=== PATIENT | male | born 1930 | race Caucasian/White ===

== ENCOUNTER → 2017-01-11 | Outpatient (CLI) | payer OTHER ==
[2017-01-11 15:04] LABS: MEAN CORPUSCULAR HEMOGLOBIN 32.9 pg (27.0-33.0); MEAN CORPUSCULAR HGB CONC 33.8 g/dl (32.0-36.5); MEAN CORPUSCULAR VOLUME 97.4 fl (80.0-96.0); RED CELL DISTRIBUTION WIDTH 13.2 % (11.5-14.5); WHITE BLOOD COUNT 3.9 K/mm3 (4.0-10.0)
[2017-01-11 15:17] LABS: FOLATE 6.4 NG/ML (>5.4); VITAMIN B12 LEVEL 316 PG/ML (247-911)
[2017-01-11 15:18] LABS: ALBUMIN 3.8 GM/DL (3.2-5.2); ALBUMIN/GLOBULIN RATIO 1.12 (1.00-1.93); ALKALINE PHOSPHATASE 67 U/L (45-117); ALT/SGPT 20 U/L (12-78); ANION GAP 6 MEQ/L (8-16); AST/SGOT 17 U/L (15-37); BILIRUBIN,TOTAL 0.4 MG/DL (0.2-1.0); BLOOD UREA NITROGEN 17 MG/DL (7-18); CALCIUM LEVEL 8.5 MG/DL (8.8-10.2); CARBON DIOXIDE LEVEL 30 MEQ/L (21-32); CHLORIDE LEVEL 105 MEQ/L (98-107); CREATININE FOR GFR 0.85 MG/DL (0.70-1.30); GLOMERULAR FILTRATION RATE > 60.0 (>35); GLUCOSE, FASTING 111 MG/DL (83-110); SODIUM LEVEL 141 MEQ/L (136-145); TOTAL PROTEIN 7.2 GM/DL (6.4-8.2)
== END ==
LOC: M LAB 13:48
PROVIDERS: ATTEND Family Medicine
DX: F03.90 Unspecified dementia, unspecified severity, without behavioral disturbance, psychotic disturbance, mood disturbance, and anxiety (principal)

== ENCOUNTER 2018-11-16 10:10 | Emergency (ER) | payer MEDICARE ==
[~2018-11-16] VITALS: Ht 182.9 cm; Wt 65.9 kg
--- NOTE | 2018-11-16 10:58 | REP ---
CT Head without contrast HISTORY: Fall COMPARISON: None Areas of decreased attenuation are present in the periventricular and subcortical white matter. This represents small-vessel ischemic disease. There is no intraparenchymal hemorrhage, acute infarct, mass or midline shift. The ventricular system and cortical sulci as well as subarachnoid space in the posterior fossa are dilated consistent with moderate volume loss. There is no extra cerebral collection. There is no fracture. The visualized sinuses are clear. IMPRESSION: 1. Small vessel ischemic disease. 2. Moderate volume loss. Electronically Signed by Octaviano Rascon MD 11/16/2018 10:50 A
--- NOTE | 2018-11-16 11:56 | REP ---
Right hip two views History: Fall There is no acute fracture or dislocation. The joint space is normal in appearance. Impression: There is no acute fracture or dislocation. Electronically Signed by Octaviano Rascon MD 11/16/2018 11:48 A
--- NOTE | 2018-11-16 12:16 | REP ---
RIGHT ELBOW, FOUR VIEWS: HISTORY: Fall. There is no acute fracture or dislocation. The joint space is normal in appearance. IMPRESSION: There is no acute fracture or dislocation. Electronically Signed by Octaviano Rascon MD 11/16/2018 12:18 P
--- NOTE | 2018-11-16 12:17 | REP ---
UNILATERAL RIGHT RIBS, PA CHEST, FIVE VIEWS: HISTORY: Fall. COMPARISON: 08/23/2005 A calcified granuloma is present in the right lower lobe. The left lung is clear. The heart is normal in size. The pulmonary vasculature is normal in appearance. The bony structure is intact. IMPRESSION: No acute disease. Electronically Signed by Octaviano Rascon MD 11/16/2018 12:17 P
[2018-11-16] MEDS ORDERED: ACET-683 PO (12:51)
[2018-11-16 12:54] VITALS: BP 140/69
== END 2018-11-16 12:55 | disposition home or self-care (01) ==
LOC: M ED 10:10
DX: R26.81 Unsteadiness on feet (principal); S20.211A Contusion of right front wall of thorax, initial encounter; S50.01XA Contusion of right elbow, initial encounter; S70.01XA Contusion of right hip, initial encounter; S00.03XA Contusion of scalp, initial encounter; W18.39XA Other fall on same level, initial encounter; Y92.018 Other place in single-family (private) house as the place of occurrence of the external cause; G30.9 Alzheimer's disease, unspecified; Z79.899 Other long term (current) drug therapy

== ENCOUNTER 2018-11-23 18:41 | Emergency (ER) | payer MEDICARE ==
[~2018-11-23] VITALS: Ht 177.8 cm; Wt 63.6 kg
[~2018-11-23 18:41] MED LIST: ACET-683 PO
[2018-11-23] MEDS ORDERED: RISP0.5T3 (18:46)
[2018-11-23] MEDS ORDERED: NS 1,000 ML IV ONE (19:15)
[2018-11-23 19:40] LABS: BASO % 0.5 % (0.0-1.0); EOS # 0.1 10^3/uL (0.0-0.50); EOS % 2.3 % (0.0-3.0); HEMATOCRIT 36.8 % (42.0-52.0); HEMOGLOBIN 11.8 g/dl (13.5-17.5); LYMPH # 0.8 10^3/uL (1.5-4.5); LYMPH % 12.8 % (24.0-44.0); MEAN CORPUSCULAR HEMOGLOBIN 31.4 pg (27.0-33.0); MEAN CORPUSCULAR HGB CONC 32.1 g/dl (32.0-36.5); MEAN CORPUSCULAR VOLUME 97.9 fl (80.0-96.0); MONO # 0.5 10^3/uL (0.0-0.8); MONO % 8.8 % (0.0-5.0); NEUTROPHILS # 4.6 10^3/uL (1.8-7.7); NEUTROPHILS % 75.3 % (36.0-66.0); PLATELET COUNT, AUTOMATED 276 10^3/uL (150-450); RED BLOOD COUNT 3.76 10^6/uL (4.30-6.10); WHITE BLOOD COUNT 6.2 10^3/uL (4.0-10.0)
[2018-11-23 20:25] LABS: ALBUMIN 3.1 GM/DL (3.2-5.2); ALT/SGPT 20 U/L (12-78); BILIRUBIN,DIRECT < 0.1 MG/DL (0.0-0.2); BILIRUBIN,TOTAL 0.2 MG/DL (0.2-1.0); BLOOD UREA NITROGEN 18 MG/DL (7-18); CALCIUM LEVEL 8.6 MG/DL (8.8-10.2); CARBON DIOXIDE LEVEL 31 MEQ/L (21-32); CHLORIDE LEVEL 106 MEQ/L (98-107); CREATININE FOR GFR 0.89 MG/DL (0.70-1.30); GLOMERULAR FILTRATION RATE > 60.0 (>35); GLUCOSE, FASTING 104 MG/DL (70-100); LIPASE 91 U/L (73-393); POTASSIUM SERUM 4.1 MEQ/L (3.5-5.1); SODIUM LEVEL 141 MEQ/L (136-145); TOTAL PROTEIN 6.9 GM/DL (6.4-8.2)
[2018-11-23 21:29] VITALS: BP 144/96
--- NOTE | 2018-11-24 01:12 | REP ---
Clinical: Abdominal pain. Technique: Supine and cross-table lateral views of the abdomen and pelvis. Findings: The bowel gas pattern is nonspecific and without obstruction or perforation. No organomegaly. Calcifications in the pelvis likely represent phleboliths although a distal left ureteral stone cannot be excluded and should be correlated with physical examination. Skeletal structures demonstrate chronic levoconvex scoliosis and multilevel degenerative changes. Impression: 1. Nonspecific bowel gas pattern 2. Calculus in the left yusef pelvis phlebolith versus possible distal ureteral stone. Electronically Signed by Usman Cherry MD 11/24/2018 01:01 A
== END 2018-11-23 21:31 | disposition home or self-care (01) ==
LOC: M ED 18:41
DX: R19.7 Diarrhea, unspecified (principal); R10.9 Unspecified abdominal pain

== ENCOUNTER 2019-05-10 10:16 | Emergency (ER) | payer MEDICARE ==
[~2019-05-10] VITALS: Ht 182.9 cm; Wt 63.6 kg
[~2019-05-10 10:16] MED LIST changes: +RISP0.5T3 PO
[2019-05-10] MEDS ORDERED: FLEET ENEMA PR ONE (10:45)
[2019-05-10] MEDS ORDERED: MIRA3350 PO ×2 (11:50→13:16)
[2019-05-10] MEDS ORDERED: COLA1TAB PO (11:50)
[2019-05-10] MEDS ORDERED: LIDOCAINE 2% 5ML JELLY UROJET TOP ONE (12:00)
[2019-05-10] MEDS ORDERED: BACT800T5 PO ×2 (12:45→13:16)
[2019-05-10] MEDS ORDERED: SENN1TAB36 PO (13:16)
[2019-05-10 13:33] VITALS: BP 155/88
== END 2019-05-10 13:36 | disposition home or self-care (01) ==
LOC: M ED 10:16
DX: K59.00 Constipation, unspecified (principal); R33.9 Retention of urine, unspecified; N39.0 Urinary tract infection, site not specified; N40.1 Benign prostatic hyperplasia with lower urinary tract symptoms; G30.9 Alzheimer's disease, unspecified; Z79.899 Other long term (current) drug therapy

== ENCOUNTER 2019-05-12 03:54 | Inpatient (IN) | payer MEDICARE ==
[~2019-05-12] VITALS: Ht 182.9 cm; Wt 63.6 kg
[~2019-05-12 03:54] MED LIST changes: +BACT800T5 PO; +COLA1TAB PO; +MIRA3350 PO; +SENN1TAB36 PO
[2019-05-12] MEDS ORDERED: LIDOCAINE 2% 5ML JELLY UROJET TOP ONE ×2 (04:45→06:30)
--- NOTE | 2019-05-12 06:24 | REPVR ---
PROCEDURE INFORMATION: Exam: CT Abdomen And Pelvis Without Contrast Exam date and time: 05/12/2019 5:07 AM Clinical history: 88 years old, male; Abdominal pain; Localized; Lower; Additional info: Suprapubic pain, ? bladder overdistention TECHNIQUE: Imaging protocol: Computed tomography of the abdomen and pelvis without contrast. Radiation optimization: All CT scans at this facility use at least one of these dose optimization techniques: automated exposure control; mA and/or kV adjustment per patient size (includes targeted exams where dose is matched to clinical indication); or iterative reconstruction. COMPARISON: CR Hip, Ap,Lat 11/16/2018 11:12 AM FINDINGS: Limitations: There is artifact related to the positioning of the patients arms. There is motion artifact. Lungs: There is a coarse calcification posteriorly in the right lower lobe, only partially included, most likely a calcified granuloma. Nonspecific dependent hazy density is present in the lung bases. Liver: The unenhanced liver appears unremarkable. Gallbladder and bile ducts: The gallbladder appears grossly unremarkable, but assessment is limited by artifact at this level. Pancreas: There is diffuse, benign fatty infiltration of the pancreas. Spleen: The spleen is unremarkable. Adrenals: The adrenal glands are normal. Kidneys and ureters: There is mild bilateral hydronephrosis. There is a stone in the distal left ureter just proximal to the bladder, measuring 6 x 7 x 10 mm. There is a calcification posteriorly on the right side of the bladder measuring 7 x 4 x 4 mm. This may be within the bladder lumen or in the right UVJ. There is a 6 cm cyst with simple fluid density in the right kidney lower pole. Mild diffuse thinning of the renal parenchyma is seen, indicating atrophy. Stomach and bowel: Diverticulosis is noted throughout the colon, most prominent in the sigmoid colon and left colon. There is no gross dilation or thickening of the small bowel or the colon. Assessment of the bowel is limited by motion artifact. Appendix: A normal appendix is identified. Intraperitoneal space: There is no evidence of free intraperitoneal or pelvic fluid. There is no free intraperitoneal air. Vasculature: Atherosclerotic changes are present in the abdominal aorta and the iliac arteries. Lymph nodes: No lymphadenopathy is seen. Bladder: The bladder is mildly distended, measuring 12.3 x 7.5 x 8.1 cm. There is mild diffuse thickening of the bladder wall. There is a small diverticulum at the anterosuperior aspect of the bladder in the midline. A small amount of air is seen in the bladder lumen, probably related to recent instrumentation. Please correlate clinically. There is a hyperdensity within the lumen of the bladder at the bladder base to the right of midline and in the region of the right UVJ, which is not fully evaluated without contrast, but may be blood products or a lesion projecting into the lumen. Reproductive: The prostate is enlarged, measuring 5.7 x 4.8 x 6.4 cm. Bones/joints: Degenerative endplate changes are seen at multiple levels in the visualized spine. There is facet arthropathy in the lumbar spine. There is a leftward convex curvature of the lumbar spine. Soft tissues: The soft tissues appear unremarkable. IMPRESSION: 1. Mild bilateral hydronephrosis with an obstructing 6 x 7 x 10 mm stone in the distal left ureter and a 7 x 4 x 4 mm stone on the right side of bladder posteriorly which is probably in the right UVJ, possibly in the bladder lumen. 2. Mild distention of the bladder and mild bladder wall thickening, which may be related to outflow obstruction from the enlarged prostate. 3. Small amount of hyperdensity in the lumen of the bladder at the bladder base may be blood products. Intraluminal projection of a bladder wall lesion is possible, however. Differentiation between these is limited by the lack of IV contrast. Findings were discussed with ALEXSANDRA NAGEL at 05/12/2019 6:21 AM EDT. Electronically signed by: Paula Hay On 05/12/2019 06:24:45 AM
[2019-05-12 08:03] LABS: BASO # 0.1 10^3/uL (0.0-0.2); BASO % 0.6 % (0.0-1.0); EOS # 0.2 10^3/uL (0.0-0.5); EOS % 1.7 % (0.0-3.0); HEMATOCRIT 35.6 % (42.0-52.0); HEMOGLOBIN 11.7 g/dl (13.5-17.5); LYMPH % 11.5 % (24.0-44.0); MEAN CORPUSCULAR HEMOGLOBIN 31.5 pg (27.0-33.0); MEAN CORPUSCULAR HGB CONC 32.9 g/dl (32.0-36.5); MEAN CORPUSCULAR VOLUME 95.7 fl (80.0-96.0); MONO # 1.1 10^3/uL (0.0-0.8); MONO % 12.2 % (0.0-5.0); NEUTROPHILS # 6.6 10^3/uL (1.5-8.5); NEUTROPHILS % 73.7 % (36.0-66.0); PLATELET COUNT, AUTOMATED 245 10^3/uL (150-450); RED BLOOD COUNT 3.72 10^6/uL (4.30-6.10); WHITE BLOOD COUNT 8.9 10^3/uL (4.0-10.0)
[2019-05-12 08:07] LABS: CALCIUM LEVEL 9.1 MG/DL (8.8-10.2); CREATININE FOR GFR 1.25 MG/DL (0.70-1.30); POTASSIUM SERUM 4.2 MEQ/L (3.5-5.1)
[2019-05-12] MEDS ORDERED: MELA10CA2 PO (08:07)
[2019-05-12] MEDS ORDERED: COLA100C5 PO (08:07)
[2019-05-12] MEDS ORDERED: MIRA3350 PO (08:07)
[2019-05-12] MEDS ORDERED: BACT800T5 PO (08:07)
[2019-05-12] MEDS: DOCUSATE SODIUM 100 MG CAP PO SCH ×3 (09:00→21:34)
[2019-05-12] MEDS ORDERED: MOM 30ML SUSPENSION UDC PO PRN (09:15)
[2019-05-12] MEDS ORDERED: MAALOX 30 ML SUSP *UDC PO PRN (09:15)
[2019-05-12 11:30] VITALS: BP 134/61
--- NOTE | 2019-05-12 11:31 | CR ---
DATE OF CONSULTATION: 05/12/2019 REASON FOR CONSULTATION: Urinary retention with inability to pass catheter and bilateral ureteral stones. CONSULTING PHYSICIAN: Dr. 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 He was taken to the emergency room where he had in and out catheter placement without difficulty. He returned early this morning with inability to void and severe discomfort. He has also been having some issues with constipation according to his attendant. No family is available. Attempts by ER staff to pass 16 and 18 Jordanian straight and Coude catheters were unsuccessful prompting consultation. A CT scan showed bilateral distal ureteral stones with the largest stone on the left and a smaller stone near the ureterovesical junction on the right. Bilateral hydroureteronephrosis was noted. The bladder was massively enlarged. The patient has a sensation of needing to void and continuously tries to get up. He is unable to give any other history or review of systems. There is an apparent past history of stones. He has profound dementia and is living in an assisted care environment. He takes only medications for sleep. He does take melatonin, risperidone and Colace. Remainder of his review of systems could not be obtained. PHYSICAL EXAMINATION: The patient is in moderate discomfort and complaining of an urge to void, but unable to do so. Temperature 96.8, pulse 92, respirations 18, blood pressure 162/74, saturation 98. In general, he is an elderly male who is profoundly demented. He is confused and disoriented. He is uncertain of his location. Chest is clear. Cardiac Exam: Regular rate and rhythm. Abdominal exam shows a prominent bladder. He has diffuse abdominal tenderness. Genital exam shows descended testes, without masses. Phallus uncircumcised. Rectal exam not done at this time. Remainder of physical exam unremarkable. IMPRESSION: 1. Urinary retention with bilateral ureteral stones. PROCEDURE: After obtaining informed consent from his health care proxy, we performed cystoscopy at the bedside using a 16 Jordanian flexible cystoscope. We were able to advance the scope into the bladder and pass a wire into the bladder over which we placed a 16 Jordanian [place] Tip catheter. There was a one liter return of urine which was initially clear and then turned red consistent with drainage of a distended bladder. The patient tolerated these procedures well. It is my impression that the patient may need to be admitted for metabolic optimization. Eventually, he will need endoscopic management of his stones when optimized. In the meantime, he should be watched for postoperative diuresis. I will be following the patient with the hospitalist team in house. A urine culture is ordered.
--- NOTE | 2019-05-12 13:26 | HPEPDOC ---
[facility] Medical History & Physical Date of Admission May 12, 2019 Date of Service: May 12, 2019 History and Physical Chief complaints Urinary retention HISTORY OF PRESENT ILLNESS: This is a 88-year-old male with unknown past medical history possibly of advanced dementia, Alzheimer's, BPH, was brought by the family because of abdominal pain and unable to void. The patient was found to have an extremely distended abdomen. For that reason, they tried to put a Felton in, but because it was been not been able to be placed. Urology was consulted and they inserted a Fleton. The patient also was found to have bilateral renal s tones with hydronephrosis for which urologist continues to follow the patient. The patient also was having nitrates and positive on the UA and for that reason, the patient will also be treated for UTI with Rocephin. Patient denies any abdominal pain, any chest pain, any loss of consciousness. He is been able to answer questions but is not a very good historian. Review system: 10 point review systems negative other than those described in HPI. PAST MEDICAL HISTORY: Alzheimer's, BPH PAST SURGICAL HISTORY: None ALLERGIES: NO KNOWN DRUG ALLERGIES. FAMILY HISTORY: Would not be obtained SOCIAL HISTORY: Could not be obtained HOME MEDICATIONS: Please see below. 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 Assessment and plan: 1. Urinary retention. Attempts were made in the past. 16. An 18 Burundian catheter, which were unsuccessful. Urology were able to advance the scope into the bladder and pass a wire into the bladder over which we placed a 16 Burundian [place] Tip catheter. There was a one liter return of urine which was initially clear and then turned red consistent with drainage of a distended bladder. Will monitor for any obstruction by the clot as now. The patient's urine is bloody. With that. The patient will also be kept on some fluids to avoid any pos t obstructive diuresis. Will monitor the electrolytes. 2. 2. Bilateral renal stones with hydronephrosis : Follow-up with urological consultation. Once the patient is medically optimized. Possibly the patient would require some intervention. 3. Advanced Alzheimer's. He'll be kept on fall and aspiration precautions We will get social workers in all 4 social support. DVT prophylaxis with SCDs Disposition unknown at this time Vital Signs Vital Signs Date Time Temp Pulse Resp B/P (MAP) Pulse Ox O2 Delivery O2 Flow Rate FiO2 05/12/19 11:21 98.8 75 20 111/56 (74) 96 Room Air Laboratory Data Labs 24H Laboratory Tests 2 05/12/19 07:36: Immature Granulocyte % (Auto) 0.3, Neutrophils (%) (Auto) 73.7H, Lymphocytes (%) (Auto) 11.5L, Monocytes (%) (Auto) 12.2H, Eosinophils (%) (Auto) 1.7, Basophils (%) (Auto) 0.6, Neutrophils # (Auto) 6.6, Lymphocytes # (Auto) 1.0L, Monocytes # (Auto) 1.1H, Eosinophils # (Auto) 0.2, Basophils # (Auto) 0.1, Nucleated Red Blood Cells % (auto) 0.0, Anion Gap 5L, Glomerular Filtration Rate 58.0, Calcium Level 9.1 05/12/19 08:44: Urine Color YELLOW, Urine Appearance CLEAR, Urine pH 6.0, Urine Specific [place] 1.009, Urine Protein 1+H, Urine Glucose (UA) NEGATIVE, Urine Ketones NEGATIVE, Urine Blood 3+H, Urine Nitrite POSITIVEH, Urine Bilirubin NEGATIVE, Urine Urobilinogen 0.2, Urine Leukocyte Esterase NEGATIVE, Urine WBC (Auto) 57H, Urine RBC (Auto) TNTCH, Urine Hyaline Casts (Auto) 0, Urine Bacteria (Auto) NEGATIVE, Urine Squamous Epithelial Cells 0, Urine Sperm (Auto) CBC/BMP Laboratory Tests 05/12/19 07:36 Microbiology Microbiology 05/12/19 Urine Culture, Received Pending Home Medications Scheduled Docusate Sodium (Colace) 100 Mg Capsule, 100 MG PO QHS Melatonin (Melatonin) 10 Mg Capsule, 20 MG PO QHS Risperidone (Risperidone) 0.5 Mg Tablet, 0.5 MG PO QHS Sulfamethoxazole/Trimethoprim (Bactrim Ds Tablet) 1 Each Tablet, 1 TAB PO BID FILLED 05/10/19 FOR 7 DAYS Scheduled PRN Polyethylene Glycol 3350 (Miralax) 119 Gm Powder, 17 GM PO DAILY PRN for CONSTIPATION Allergies Coded Allergies: No Known Allergies (Unverified , 11/16/18) A-FIB/CHADSVASC A-FIB History Current/History of A-Fib/PAF?: No Current PO Anticoag Therapy: No DREA GUARDADO MD May 12, 2019 13:26
[2019-05-12 14:00] VITALS: BP 122/66
[2019-05-12] MEDS: cefTRIAXone SOD 1 GM in D5W MINI-BAG PLUS 50 ML IV SCH (14:18)
[2019-05-12] MEDS: NS 1,000 ML IV SCH (14:18)
[2019-05-12] MEDS: HEPARIN SOD (PORCINE) 5000 UNITS/ML VIAL SC SCH ×2 (14:19→21:34)
[2019-05-12] MEDS: ACETAMINOPHEN TAB 650MG DOSE (2X325MG) PO PRN (16:43)
[2019-05-12] MEDS: risperiDONE 0.5 MG TAB PO SCH (21:34)
[2019-05-12 22:00] VITALS: BP 120/83
[2019-05-13] MEDS: NS 1,000 ML IV SCH ×2 (02:45→14:57)
[2019-05-13] MEDS: HEPARIN SOD (PORCINE) 5000 UNITS/ML VIAL SC SCH ×3 (05:22→21:54)
[2019-05-13 06:00] VITALS: BP 98/58
[2019-05-13 06:42] LABS: ALBUMIN 2.8 GM/DL (3.2-5.2); ALT/SGPT 12 U/L (12-78); BILIRUBIN,TOTAL 0.4 MG/DL (0.2-1.0); BLOOD UREA NITROGEN 13 MG/DL (7-18); CALCIUM LEVEL 8.4 MG/DL (8.8-10.2); CARBON DIOXIDE LEVEL 28 MEQ/L (21-32); CHLORIDE LEVEL 109 MEQ/L (98-107); CREATININE FOR GFR 1.03 MG/DL (0.70-1.30); GLOMERULAR FILTRATION RATE > 60.0 (>35); GLUCOSE, FASTING 94 MG/DL (70-100); MAGNESIUM LEVEL 2.2 MG/DL (1.8-2.4); POTASSIUM SERUM 4.2 MEQ/L (3.5-5.1); SODIUM LEVEL 142 MEQ/L (136-145); TOTAL PROTEIN 6.3 GM/DL (6.4-8.2)
--- NOTE | 2019-05-13 07:51 | IPNPDOC ---
Subjective Review oF Systems Chief Complaint The patient is a 88-year-old male admitted with a reason for visit of Ureterolithiasis,Urinary Retention,Uti. Events since Last Encounter Patient's sleeping soundly. General: Reports: ROS Unobtainable Objective Physical Examination Other physical findings Patient sleeping soundly. According to his nurses, he was up all night pulling on IVs and catheter. Urine clear. Patient with urine culture pending. Afebrile since admission. Other vital signs stable since admission. Patient appears relatively intact from a metabolic standpoint. Vital Signs/I&O Vital Signs Date Time Temp Pulse Resp B/P (MAP) Pulse Ox O2 Delivery O2 Flow Rate FiO2 05/13/19 06:00 98.4 74 18 98/58 (71) 96 Room Air I&O- Last 24 Hours up to 6 AM 05/13/19 05:59 Intake Total 1160 ml Output Total 1650 ml Balance -490 ml Laboratory Data Labs 24H Laboratory Tests 2 05/12/19 08:44: Urine Color YELLOW, Urine Appearance CLEAR, Urine pH 6.0, Urine Specific [place] 1.009, Urine Protein 1+H, Urine Glucose (UA) NEGATIVE, Urine Ketones NEGATIVE, Urine Blood 3+H, Urine Nitrite POSITIVEH, Urine Bilirubin NEGATIVE, Urine Urobilinogen 0.2, Urine Leukocyte Esterase NEGATIVE, Urine WBC (Auto) 57H, Urine RBC (Auto) TNTCH, Urine Hyaline Casts (Auto) 0, Urine Bacteria (Auto) NEGATIVE, Urine Squamous Epithelial Cells 0, Urine Sperm (Auto) 05/13/19 05:47: Anion Gap 5L, Glomerular Filtration Rate > 60.0, Calcium Level 8.4L, Magnesium Level 2.2, Total Bilirubin 0.4, Aspartate Amino Transf (AST/SGOT) 17, Alanine Aminotransferase (ALT/SGPT) 12, Alkaline Phosphatase 56, Total Protein 6.3L, Albumin 2.8L, Albumin/Globulin Ratio 0.80L CBC/BMP Laboratory Tests 05/13/19 05:47 Microbiology Microbiology 05/12/19 Urine Culture, Received Pending Assessment/Plan Date Seen The patient was seen on 05/13/19. Patient Summary Impression: Urinary retention. Difficult catheterization requiring cystoscopy. Bilateral ureteral stones with larger volume stone on left and bilateral hydronephrosis. Severe dementia. Possible UTI. Plan/VTE VTE Prophylaxis Ordered?: Yes Plan Plan: Continue broad-spectrum antibiotics pending culture results. Medical clearance for general anesthesia. Possible stone extraction versus stenting when medically optimized and infection controlled. More immediate intervention if the patient deteriorates clinically. FREDY SEGOVIA MD May 13, 2019 07:51
--- NOTE | 2019-05-13 12:14 | IPNPDOC ---
Text Note Date of Service The patient was seen on 05/13/19. NOTE Patient seen and examined this morning. 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 Assessment and plan: 1. Urinary retention. Attempts were made in the past. 16. 18 Kazakh catheter, which were unsuccessful. Urology were able to advance the scope into the bladder and pass a wire into the bladder over which we placed a 16 [place] Tip catheter. There was a one liter return of urine which was initially clear and then turned red consistent with drainage of a distended bladder. Note, the urine has been clean again The patient will also be kept on some fluids to avoid any post obstructive di uresis. Will monitor the electrolytes. 2. 2. Bilateral renal stones with hydronephrosis : Follow-up with urological consultation. Once the patient is medically optimized. Possibly the patient would require some intervention. As per medical clearance. The patient's baseline is not known. As there is some indication that he will undergo general anesthesia. We will get a baseline cardi ac function with an EKG and 2-D echo. If no severe wall at heart disease or no severe congestive heart failure. The patient will be optimized with mild to moderate risk for this low-risk surgery. We will update after 2-D echo and EKG 3. Advanced Alzheimer's. He'll be kept on fall and aspiration precautions social workers in all 4 social support. DVT prophylaxis with SCDs Disposition unknown at this time VS,Fishbone, I+O VS, Fishbone, I+O Laboratory Tests 05/13/19 05:47 Vital Signs Date Time Temp Pulse Resp B/P (MAP) Pulse Ox O2 Delivery O2 Flow Rate FiO2 05/13/19 06:00 98.4 74 18 98/58 (71) 96 Room Air I&O- Last 24 Hours up to 6 AM 05/13/19 06:00 Intake Total 1670 ml Output Total 1900 ml Balance -230 ml DREA GUARDADO MD May 13, 2019 12:14
[2019-05-13 14:00] VITALS: BP 98/57
[2019-05-13] MEDS: cefTRIAXone SOD 1 GM in D5W MINI-BAG PLUS 50 ML IV SCH (14:57)
--- NOTE | 2019-05-13 16:33 | ECGEPIP ---
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 Clincal correlation advised Electronically Signed on 05-13-2019 16:32:59 EDT by Hernandez Gong
[2019-05-13] MEDS: DOCUSATE SODIUM 100 MG CAP PO SCH (21:54)
[2019-05-13] MEDS: risperiDONE 0.5 MG TAB PO SCH (21:54)
[2019-05-13 22:00] VITALS: BP 119/77
[2019-05-14] MEDS: NS 1,000 ML IV SCH ×2 (02:11→18:12)
[2019-05-14] MEDS: HEPARIN SOD (PORCINE) 5000 UNITS/ML VIAL SC SCH ×3 (05:56→22:57)
[2019-05-14 06:00] VITALS: BP 116/74
[2019-05-14 06:33] LABS: HEMATOCRIT 32.9 % (42.0-52.0); HEMOGLOBIN 10.6 g/dl (13.5-17.5); MEAN CORPUSCULAR HEMOGLOBIN 30.7 pg (27.0-33.0); MEAN CORPUSCULAR HGB CONC 32.2 g/dl (32.0-36.5); MEAN CORPUSCULAR VOLUME 95.4 fl (80.0-96.0); PLATELET COUNT, AUTOMATED 208 10^3/uL (150-450); RED BLOOD COUNT 3.45 10^6/uL (4.30-6.10); WHITE BLOOD COUNT 5.4 10^3/uL (4.0-10.0)
[2019-05-14 07:04] LABS: BLOOD UREA NITROGEN 14 MG/DL (7-18); CALCIUM LEVEL 7.9 MG/DL (8.8-10.2); CARBON DIOXIDE LEVEL 27 MEQ/L (21-32); CHLORIDE LEVEL 109 MEQ/L (98-107); CREATININE FOR GFR 0.92 MG/DL (0.70-1.30); GLOMERULAR FILTRATION RATE > 60.0 (>35); GLUCOSE, FASTING 88 MG/DL (70-100); SODIUM LEVEL 142 MEQ/L (136-145)
--- NOTE | 2019-05-14 07:23 | IPNPDOC ---
Subjective Review oF Systems Chief Complaint The patient is a 88-year-old male admitted with a reason for visit of Ureterolithiasis,Urinary Retention,Uti. Events since Last Encounter No problems overnight. Pt non-verbal, but awake this am General: Reports: ROS Unobtainable Objective Physical Examination General Exam: Alert, No Acute Distress ENT EXAM: Atraumatic Chest Exam: Normal air movement Heart Exam: Positive: Rate Normal Vital Signs/I&O Vital Signs Date Time Temp Pulse Resp B/P (MAP) Pulse Ox O2 Delivery O2 Flow Rate FiO2 05/14/19 06:00 97.0 69 18 116/74 (88) 95 05/13/19 14:00 Room Air I&O- Last 24 Hours up to 6 AM 05/14/19 05:59 Intake Total 1625 ml Output Total 1250 ml Balance 375 ml Laboratory Data Labs 24H Laboratory Tests 2 05/14/19 06:16: Nucleated Red Blood Cells % (auto) 0.0, Anion Gap 6L, Glomerular Filtration Rate > 60.0, Calcium Level 7.9L CBC/BMP Laboratory Tests 05/14/19 06:16 Microbiology Microbiology 05/13/19 Blood Culture, Received Pending 05/12/19 Urine Culture - Final, Complete Assessment/Plan Date Seen The patient was seen on 05/14/19. Patient Summary C&S NG; No significant post-obstructive diuresis. A: Retention, difficult cath pt; B distal ureteral stones; Dementia Plan/VTE VTE Prophylaxis Ordered?: Yes Plan P: Intervention for stones - ideally B USEs - when medically optimized. I will d/w Dr. Santamaria as this is my last day here [facility]. He will assume care. FREDY SEGOVIA MD May 14, 2019 07:23
--- NOTE | 2019-05-14 12:26 | IPNPDOC ---
Text Note Date of Service The patient was seen on 05/14/19. NOTE Patient seen and examined this morning. 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 Assessment and plan: 1. Urinary retention. Attempts were made in the past. 16. 18 Swedish catheter, which were unsuccessful. Urology were able to advance the scope into the bladder and pass a wire into the bladder over which we placed a 16 Swedish [place] Tip catheter. There was a one liter return of urine which was initially clear and then turned red consistent with drainage of a distended bladder. Note, the urine has been clean again The patient will also be kept on some fluids to avoid any post obstructive di uresis. Will monitor the electrolytes. 2. 2. Bilateral renal stones with hydronephrosis : Follow-up with urological consultation. Once the patient is medically optimized. Possibly the patient would require some intervention. As per medical clearance. The patient's baseline is not known. As there is some indication that he will undergo general anesthesia. We will get a baseline cardi ac function with an EKG was done and 2-D echo still evaluated. If no severe wall at heart disease or no severe congestive heart failure. The patient will be optimized with mild to moderate risk for this low-risk surgery. We will update after 2-D echo and EKG 3. Advanced Alzheimer's. He'll be kept on fall and aspiration precautions social workers in all 4 social support. DVT prophylaxis with SCDs Disposition unknown at this time VS,Fishbone, I+O VS, Fishbone, I+O Laboratory Tests 05/14/19 06:16 Vital Signs Date Time Temp Pulse Resp B/P (MAP) Pulse Ox O2 Delivery O2 Flow Rate FiO2 05/14/19 06:00 97.0 69 18 116/74 (88) 95 05/13/19 14:00 Room Air I&O- Last 24 Hours up to 6 AM 05/14/19 06:00 Intake Total 1625 ml Output Total 1300 ml Balance 325 ml DREA GUARDADO MD May 14, 2019 12:26
[2019-05-14 14:00] VITALS: BP 126/75
[2019-05-14] MEDS: cefTRIAXone SOD 1 GM in D5W MINI-BAG PLUS 50 ML IV SCH (14:15)
--- NOTE | 2019-05-14 21:40 | ECHO ---
DATE OF PROCEDURE: 05/13/2019 DATE OF : 1930 AGE: 88 GENDER: Male HEIGHT: 72 inches WEIGHT: 141 pounds BODY SURFACE AREA: 1.84 meters squared INPATIENT: [address] [place] [address], room 4225 REFERRING PHYSICIAN: Dr. Nic Starks INDICATION: Murmur (aortic stenosis, questionable). MEASUREMENTS: 2D Measurements: RV: 3.5 cm LV: 3.8 cm Septum: 1.1 cm Posterior wall: 1.0 cm Aortic root: 2.9 cm LA: 3.4 cm LVEF: 75% DOPPLER MEASUREMENTS: AV: 1.5 meters per second LVOT: 1.3 meters per second LVOT diameter: 1.9 cm MV-E: 90, A: 110, EA ratio: 0.8 Early mitral deceleration time: 176 milliseconds E-prime medial: 6, A prime medial: 8.7, E prime lateral: 8.3, average E/E prime ratio 12.6. Pulmonary capillary wedge pressure: 17.5 mmHg PV: 0.8 meters per second Pulmonary artery acceleration time: 134 milliseconds RVSP: 24 mmHg IVC: 1.7 cm COMMENTS: Normal sinus rhythm without intraventricular conduction disturbance. M-mode and two-dimensional echocardiography was performed with pulsed, continuous wave, color flow and tissue Doppler studies. Normal left ventricular size, wall thickness and hyperkinetic wall motion. Normal left atrial size with Doppler assessment of left ventricular (LV) inflow tract showing grade 1 LV diastolic dysfunction with current estimated mean left atrial pressure upper limits of normal to mildly increased. Normal right heart chamber sizes and motion and estimated pulmonary arterial pressure. Normal inferior vena cava (IVC) size and collapse against an elevated central venous pressure. Aortic valvular sclerosis without functional abnormality. Normal aortic root size. Mildly thickened mitral annulus with adequate leaflet excursion and no posterior systolic buckling but mild mitral insufficiency. Normal appearing tricuspid valve with only trace insufficiency. No apparent intracardiac mass or pericardial effusion.
[2019-05-14 22:00] VITALS: BP 143/70
[2019-05-14] MEDS: risperiDONE 0.5 MG TAB PO SCH (22:57)
[2019-05-14] MEDS: DOCUSATE SOD LIQ 100MG/10ML UDC PO SCH (22:57)
[2019-05-15] MEDS: NS 1,000 ML IV SCH (03:45)
[2019-05-15] MEDS: HEPARIN SOD (PORCINE) 5000 UNITS/ML VIAL SC SCH ×3 (05:50→21:01)
[2019-05-15 06:00] VITALS: BP 147/72
[2019-05-15 06:20] LABS: HEMATOCRIT 34.6 % (42.0-52.0); HEMOGLOBIN 11.3 g/dl (13.5-17.5); MEAN CORPUSCULAR HEMOGLOBIN 31.2 pg (27.0-33.0); MEAN CORPUSCULAR HGB CONC 32.7 g/dl (32.0-36.5); MEAN CORPUSCULAR VOLUME 95.6 fl (80.0-96.0); PLATELET COUNT, AUTOMATED 228 10^3/uL (150-450); RED BLOOD COUNT 3.62 10^6/uL (4.30-6.10); WHITE BLOOD COUNT 7.2 10^3/uL (4.0-10.0)
[2019-05-15 06:47] LABS: ALBUMIN 2.7 GM/DL (3.2-5.2); ALT/SGPT 12 U/L (12-78); BILIRUBIN,TOTAL 0.4 MG/DL (0.2-1.0); BLOOD UREA NITROGEN 12 MG/DL (7-18); CALCIUM LEVEL 8.3 MG/DL (8.8-10.2); CARBON DIOXIDE LEVEL 28 MEQ/L (21-32); CHLORIDE LEVEL 109 MEQ/L (98-107); GLOMERULAR FILTRATION RATE > 60.0 (>35); GLUCOSE, FASTING 109 MG/DL (70-100); POTASSIUM SERUM 3.6 MEQ/L (3.5-5.1); SODIUM LEVEL 143 MEQ/L (136-145); TOTAL PROTEIN 6.7 GM/DL (6.4-8.2)
--- NOTE | 2019-05-15 10:26 | IPNPDOC ---
Text Note Date of Service The patient was seen on 05/15/19. NOTE Patient seen and examined this morning. 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 Assessment and plan: This elderly patient with no significant past medical history except for BPH, came to the hospital because of urinary retention and urology. Past. The 16 [place] catheter over a wire guidance. The patient also has been found to have bilateral hydronephrosis with nephrolithiasis for which urology wanted medical optimization and clearance, which we have provided. The patient will require a procedures 100 and urology is following with that. Continue to follow up with urology and social workers and case management's are also on board for possible placement. 1. Urinary retention. Attempts were made in the past. 16. 18 [place]an catheter, which were unsuccessful. Urology were able to advance the scope into the bladder and pass a wire into the bladder over which we placed a 16 [place]an [place] Tip catheter. There was a one liter return of urine which was initially clear and then turned red consistent with drainage of a distended bladder. Note, the urine has been clean again 2. Bilateral renal stones with hydronephrosis : Follow-up with urological consultation. Possibly the patient would require some intervention. As per medical clearance. As there is some indication that he will undergo general anesthesia. His baseline cardiac function with an EKG was done which did not show any acute pathology and 2-D echo. Also shows normal systolic function with no hypergranulosis or any valvular disease. The patient is optimized with mild to moderate risk for this low-risk surgery. 3. Advanced Alzheimer's. He'll be kept on fall and aspiration precautions social workers in all 4 social support. DVT prophylaxis with SCDs Disposition unknown at this time VS,Chente, I+O VS, Fishbone, I+O Laboratory Tests 05/15/19 05:57 Vital Signs Date Time Temp Pulse Resp B/P (MAP) Pulse Ox O2 Delivery O2 Flow Rate FiO2 05/15/19 06:00 97.8 71 20 147/72 (97) 96 05/14/19 14:00 Room Air I&O- Last 24 Hours up to 6 AM 05/15/19 06:00 Intake Total 1835 ml Output Total 1150 ml Balance 685 ml DREA GUARDADO MD May 15, 2019 10:26
[2019-05-15 14:00] VITALS: BP 124/70
[2019-05-15] MEDS: cefTRIAXone SOD 1 GM in D5W MINI-BAG PLUS 50 ML IV SCH (14:30)
[2019-05-15] MEDS: risperiDONE 0.5 MG TAB PO SCH (21:00)
[2019-05-15] MEDS: DOCUSATE SOD LIQ 100MG/10ML UDC PO SCH (21:01)
[2019-05-15 22:00] VITALS: BP 125/69
[2019-05-16] MEDS: HEPARIN SOD (PORCINE) 5000 UNITS/ML VIAL SC SCH ×3 (05:56→22:28)
[2019-05-16 06:00] VITALS: BP 123/66
[2019-05-16 06:52] LABS: HEMATOCRIT 35.2 % (42.0-52.0); HEMOGLOBIN 11.4 g/dl (13.5-17.5); MEAN CORPUSCULAR HEMOGLOBIN 30.7 pg (27.0-33.0); MEAN CORPUSCULAR HGB CONC 32.4 g/dl (32.0-36.5); MEAN CORPUSCULAR VOLUME 94.9 fl (80.0-96.0); PLATELET COUNT, AUTOMATED 235 10^3/uL (150-450); RED BLOOD COUNT 3.71 10^6/uL (4.30-6.10); WHITE BLOOD COUNT 5.9 10^3/uL (4.0-10.0)
[2019-05-16 07:25] LABS: ALBUMIN 2.6 GM/DL (3.2-5.2); ALT/SGPT 20 U/L (12-78); BILIRUBIN,TOTAL 0.5 MG/DL (0.2-1.0); BLOOD UREA NITROGEN 14 MG/DL (7-18); CALCIUM LEVEL 8.6 MG/DL (8.8-10.2); CARBON DIOXIDE LEVEL 29 MEQ/L (21-32); CHLORIDE LEVEL 106 MEQ/L (98-107); CREATININE FOR GFR 0.79 MG/DL (0.70-1.30); GLOMERULAR FILTRATION RATE > 60.0 (>35); GLUCOSE, FASTING 97 MG/DL (70-100); POTASSIUM SERUM 4.1 MEQ/L (3.5-5.1); SODIUM LEVEL 139 MEQ/L (136-145); TOTAL PROTEIN 6.4 GM/DL (6.4-8.2)
--- NOTE | 2019-05-16 11:31 | IPNPDOC ---
Text Note Date of Service The patient was seen on 05/16/19. NOTE Patient seen and examined this morning. 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 Assessment and plan: This elderly patient with no significant past medical history except for BPH, came to the hospital because of urinary retention and urology. Past. The 16 Chinese catheter over a wire guidance. The patient also has been found to have bilateral hydronephrosis with nephrolithiasis for which urology wanted medical optimization and clearance, which we have provided. The patient will require a procedures and urology is following with that. Continue to follow up with urology and social workers and case management's are also on board for possible placement. 1. Urinary retention. Attempts were made. 16. 18 Chinese catheter, which were unsuccessful. Urology were able to advance the scope into the bladder and pass a wire into the bladder over which we placed a 16 Chinese [place] Tip catheter. There was a one liter return of urine which was initially clear and then turned red consistent with drainage of a distended bladder. Note, the urine has been clean again 2. Bilateral renal stones with hydronephrosis : Follow-up with urological consultation. Possibly the patient would require some intervention. As per medical clearance. As there is some indication that he will undergo general anesthesia. His baseline cardiac function with an EKG was done which did not show any acute pathology and 2-D echo. Also shows normal systolic function with no hypergranulosis or any valvular disease. The patient is optimized with mild to moderate risk for this low-risk surgery. 3. Advanced Alzheimer's. He'll be kept on fall and aspiration precautions social workers in all 4 social support. DVT prophylaxis with SCDs Disposition unknown at this time VS,Chente, I+O VS, Chente, I+O Laboratory Tests 05/16/19 06:08 Vital Signs Date Time Temp Pulse Resp B/P (MAP) Pulse Ox O2 Delivery O2 Flow Rate FiO2 05/16/19 06:00 98.7 70 16 123/66 (85) 98 Room Air I&O- Last 24 Hours up to 6 AM 05/16/19 06:00 Intake Total 1010 ml Output Total 1125 ml Balance -115 ml DREA GUARDADO MD May 16, 2019 11:31
[2019-05-16] MEDS: cefTRIAXone SOD 1 GM in D5W MINI-BAG PLUS 50 ML IV SCH (13:16)
[2019-05-16 14:00] VITALS: BP 108/68
[2019-05-16 22:00] VITALS: BP 136/80
[2019-05-16] MEDS: DOCUSATE SOD LIQ 100MG/10ML UDC PO SCH (22:29)
[2019-05-16] MEDS: risperiDONE 0.5 MG TAB PO SCH (22:29)
[2019-05-17] MEDS: HEPARIN SOD (PORCINE) 5000 UNITS/ML VIAL SC SCH ×2 (05:47→14:09)
[2019-05-17 06:00] VITALS: BP 128/81
[2019-05-17 06:20] LABS: MEAN CORPUSCULAR HEMOGLOBIN 31.1 pg (27.0-33.0); MEAN CORPUSCULAR HGB CONC 32.4 g/dl (32.0-36.5); MEAN CORPUSCULAR VOLUME 95.9 fl (80.0-96.0); PLATELET COUNT, AUTOMATED 254 10^3/uL (150-450); RED BLOOD COUNT 3.86 10^6/uL (4.30-6.10); WHITE BLOOD COUNT 6.1 10^3/uL (4.0-10.0)
[2019-05-17 06:45] LABS: ALBUMIN 2.9 GM/DL (3.2-5.2); ALT/SGPT 24 U/L (12-78); BILIRUBIN,TOTAL 0.3 MG/DL (0.2-1.0); BLOOD UREA NITROGEN 14 MG/DL (7-18); CARBON DIOXIDE LEVEL 30 MEQ/L (21-32); CHLORIDE LEVEL 105 MEQ/L (98-107); CREATININE FOR GFR 0.76 MG/DL (0.70-1.30); GLOMERULAR FILTRATION RATE > 60.0 (>35); GLUCOSE, FASTING 102 MG/DL (70-100); POTASSIUM SERUM 3.8 MEQ/L (3.5-5.1); SODIUM LEVEL 139 MEQ/L (136-145); TOTAL PROTEIN 7.2 GM/DL (6.4-8.2)
--- NOTE | 2019-05-17 12:39 | IPNPDOC ---
Text Note Date of Service The patient was seen on 05/17/19. NOTE SUBJECTIVE: Mr. Jeter is oriented principally to self. He is requesting that his safety mittens be taken off. Patient is admitted with underlying ureterolithiasis and urinary retention. OBJECTIVE: Please see vital signs below Physical exam: HENT: Neck is supple with no adenopathy or thyromegaly. He does not have scleral icterus. Oral mucosa is moist Cardiovascular: Regular rate and rhythm. No appreciable murmur Respiratory: Clear to auscultation, no cough. Abdomen: Soft, nondistended, nontender, Felton catheter in place. Extremities: Patient has safety minutes in place to his upper extremities and his IV lines are wrapped. Neuro: Patient does not exhibit focal neuromotor deficit, but has cognition deficits ASSESSMENT/PLAN: 1. Urinary retention. Patient had placement of Felton catheter by urology services. Patient has significant prostate enlargement. 2. Urinary tract infection. The patient did have a positive UA, but a negative culture. Patient is on ceftri axone. 3. Renal stones. The patient has left ureterolithiasis and a stone to the bladder as well. Plans are in progress for intervention from the urology service. 4. Risk assessment. The patient does not have an abnormal EKG and echocardiogram is unremarkable with normal systolic function. He does not have significant underlying pulmonary disease. He is of mild to moderate risk for procedures. VS,Fishbone, I+O VS, Fishbone, I+O Laboratory Tests 05/17/19 05:40 Vital Signs Date Time Temp Pulse Resp B/P (MAP) Pulse Ox O2 Delivery O2 Flow Rate FiO2 05/17/19 06:00 98.2 78 17 128/81 (97) 96 Room Air I&O- Last 24 Hours up to 6 AM 05/17/19 06:00 Intake Total 510 ml Output Total 1675 ml Balance -1165 ml JAQUI SMYTH MD May 17, 2019 12:38
[2019-05-17 14:00] VITALS: BP 130/85
[2019-05-17] MEDS: cefTRIAXone SOD 1 GM in D5W MINI-BAG PLUS 50 ML IV SCH (14:06)
--- NOTE | 2019-05-17 17:30 | IPNPDOC ---
Text Note Date of Service The patient was seen on 05/17/19. NOTE Mr Jeter who is a 88 yo demented male was admitted 05/12/19 for urinary r etention and Dr. James put in a Felton catheter by cystoscopy at the bedside. A CT scan also showed a distal right ureteral stone measuring up to 10 mm and of questionable left stone but it looks like this may be in the bladder. There was mild bilateral hydronephrosis. He has been afebrile with normal renal function and the healthcare proxy wanted the stones were removed. The patient had a cardiac workup and has a moderate risk medical standpoint. Plan is to bring him to the operating room tomorrow for cystoscopy, bilateral ureteroscopy and less we see the stone in the bladder that we will only plan on doing the right hand side with laser lithotripsy, possible stone basketing, and stent placement. Informed consent was obtained with Ernesto Khan who is the patient's healthcare proxy. We did discuss the option of just continued watchful waiting but I think they were concerned about the risk of recurrent infection and felt that they wanted to have this taken care of. They understand that there is moderate risks to this procedure. Physical exam: He is not a alert and oriented at all and has a sitter. He did not seem to react to flank tenderness or to an abdominal exam. He had no calf tenderness or edema. Impression/Plan -Urinary retention status post Felton catheter placed by cystoscopy after unable to place Felton catheter in the emergency room 05/12/19. We'll continue Felton ca theter for now and replaced tomorrow in the operating room. -Bilateral mild hydronephrosis with a 10 mm distal left ureteral stone and a possible 7 mm right distal stone versus a bladder stone with a 6 mm simple cyst seen on CT scan 05/12/19 and we will plan surgical management tomorrow -Urine culture was normal although a UA originally showed 57 white blood cells and too numerous to count red blood cells but he has been covered with antibiotics anyway -Abnormal EKG but an echocardiogram was unremarkable with normal systolic function and it was felt that he was at moderate risk for the procedure but the healthcare proxy wanted to proceed. VS,Fishbone, I+O VS, Fishbone, I+O Laboratory Tests 05/17/19 05:40 Vital Signs Date Time Temp Pulse Resp B/P (MAP) Pulse Ox O2 Delivery O2 Flow Rate FiO2 05/17/19 14:00 98.0 96 18 130/85 (100) 100 Room Air I&O- Last 24 Hours up to 6 AM 05/17/19 06:00 Intake Total 510 ml Output Total 1675 ml Balance -1165 ml SANDRA SLAUGHTER MD May 17, 2019 17:26
[2019-05-17] MEDS: risperiDONE 0.5 MG TAB PO SCH (21:55)
[2019-05-17] MEDS: DOCUSATE SOD LIQ 100MG/10ML UDC PO SCH (21:55)
[2019-05-17 22:00] VITALS: BP 129/78
[2019-05-18] VITALS (8 sets, daily range): BP systolic 102–149; BP diastolic 68–89
[2019-05-18 06:18] LABS: HEMATOCRIT 35.3 % (42.0-52.0); HEMOGLOBIN 11.6 g/dl (13.5-17.5); MEAN CORPUSCULAR HEMOGLOBIN 30.8 pg (27.0-33.0); MEAN CORPUSCULAR HGB CONC 32.9 g/dl (32.0-36.5); MEAN CORPUSCULAR VOLUME 93.6 fl (80.0-96.0); PLATELET COUNT, AUTOMATED 283 10^3/uL (150-450); RED BLOOD COUNT 3.77 10^6/uL (4.30-6.10); WHITE BLOOD COUNT 5.8 10^3/uL (4.0-10.0)
[2019-05-18 06:40] LABS: ALBUMIN 2.8 GM/DL (3.2-5.2); ALT/SGPT 27 U/L (12-78); BILIRUBIN,TOTAL 0.3 MG/DL (0.2-1.0); BLOOD UREA NITROGEN 17 MG/DL (7-18); CALCIUM LEVEL 8.5 MG/DL (8.8-10.2); CARBON DIOXIDE LEVEL 29 MEQ/L (21-32); CHLORIDE LEVEL 103 MEQ/L (98-107); CREATININE FOR GFR 0.86 MG/DL (0.70-1.30); GLOMERULAR FILTRATION RATE > 60.0 (>35); GLUCOSE, FASTING 104 MG/DL (70-100); POTASSIUM SERUM 4.2 MEQ/L (3.5-5.1); SODIUM LEVEL 137 MEQ/L (136-145); TOTAL PROTEIN 6.8 GM/DL (6.4-8.2)
[2019-05-18] MEDS ORDERED: CONRAY-60 60% 50ML VIAL (Q9961) As Ordered ONE ×2 (11:16→14:05)
[2019-05-18] MEDS ORDERED: dexameTHASONE 4 MG/ML 1ML VIAL (J1100) As Ordered ONE (13:28)
[2019-05-18] MEDS ORDERED: LIDOCAINE 2% INJ 100 MG/5 ML SDV (FOR ANES.) As Ordered ONE (13:28)
[2019-05-18] MEDS ORDERED: fentaNYL 100 MCG/2 ML INJECTION (J3010) As Ordered ONE ×2 (13:28→14:48)
[2019-05-18] MEDS ORDERED: PROPOFOL 200 MG/20 ML VIAL As Ordered ONE (13:28)
[2019-05-18] MEDS ORDERED: ONDANSETRON 4MG/2ML VIAL (J2405) As Ordered ONE (13:28)
[2019-05-18] MEDS ORDERED: ePHEDrine SULFATE 25 MG/5 ML(5MG/ML) SYRINGE As Ordered ONE (14:25)
[2019-05-18] MEDS ORDERED: ceFAZolin 1GM INJ (J0690 PER 500MG) As Ordered ONE (14:29)
[2019-05-18] MEDS ORDERED: PHENYLephrine HCL 500 MCG/5 ML (100MCG/ML) SYRINGE (J2370) As Ordered ONE (14:35)
[2019-05-18] MEDS ORDERED: FLUORESCEIN 10% (100MG/ML) 5 ML VIAL As Ordered ONE (14:39)
[2019-05-18] MEDS ORDERED: METOCLOPRAMIDE INJ 10MG/2ML VIAL (J2765) IV PRN (16:15)
[2019-05-18] MEDS ORDERED: ONDANSETRON 4MG/2ML VIAL (J2405) IV PRN (16:15)
[2019-05-18] MEDS ORDERED: LR 1,000 ML IV SCH (16:15)
[2019-05-18] MEDS ORDERED: PERCOCET 5MG/325MG TAB PO PRN (16:15)
[2019-05-18] MEDS ORDERED: fentaNYL 100 MCG/2 ML INJECTION (J3010) IV PRN (16:15)
--- NOTE | 2019-05-18 17:07 | RO ---
DATE OF PROCEDURE: 05/18/2019 PREOPERATIVE DIAGNOSIS: 10 mm distal right ureteral calculi, possible distal left ureteral calculi versus bladder stone, and patient with urinary retention and inability to place a catheter. POSTOPERATIVE DIAGNOSIS: Significant false passage at the bladder neck with inability to find the right ureteral orifice and the stones had passed out of the left hand side. SURGEON: Dr. Eneida Ziegler PARKING INSPECTOR: ANESTHESIA: General. DRAINS: #20-Indonesian Felton catheter. FINDINGS: Significantly large false passage under the bladder neck, which probably disrupted the trigone a little bit making it very difficult to find the right ureteral orifice, also with very significant trabeculation and small diverticula formation. Also, two stones were seen in the bladder next to the right ureteral orifice. INDICATIONS FOR PROCEDURE: The patient is an 88-year-old gentleman who came to the hospital approximately 1 week ago with the inability to void. In the emergency room, they attempted to place a Felton catheter but was unable to. The urologist superintendent division, Dr. James, came in and was able to place a Felton after doing cystoscopy at the bedside. A CT scan had also been done, and this showed a 10 mm distal right ureteral calculus and a possible distal left ureteral calculus, but this appears it has already passed into the bladder. Even though the patient is completely demented, the caregiver decided that they would like to have the stone taken care of. The patient therefore was consented by the healthcare proxy to come to the operating room for more definitive management. DESCRIPTION OF PROCEDURE: The patient was brought into the operating room, general anesthesia was induced, and he was placed in the lithotomy position. Sequential compression devices were in place. Next, a 21-Indonesian cystoscope was inserted. The urethra was noted to be open without any evidence of lesions or strictures. Upon entering the prostatic urethra, a very large bladder neck false passage was seen, and he had an extremely elevated bladder neck, and I was finally able to maneuver into the bladder. Upon entering the bladder, there was extreme trabeculation throughout. I was unable to find either ureteral orifice, so I gave fluorescein. I was able to then see the right ureteral orifice and when this followed across the trigone onto the right, the anatomy was distorted, I believe because of the false passage, and I was unable to see the orifice. There were two large stones seen lateral to the right ureteral orifice, so I believe these had passed into the bladder. One was grasped with a grasping forcep, the larger one and removed. I spent some time trying to find the right ureteral orifice but decided with the bladder neck false passage that it probably was not worthwhile at this time. At this time, I placed a wire into the bladder and then placed a [place] tip catheter over this and the urine was draining well. I discussed this with the healthcare proxy. The question is whether the distal right ureteral stone needs to be taking care of. This is a very large stone and most likely it has been there for quite some time. He has not really had gross hematuria or difficulty with recurrent urinary tract infections or renal insufficiency. He is completely incapacitated because of his dementia. But this will be a familial decision. At this point, my recommendation is to leave the Felton catheter in for a minimum of 2 weeks before attempting another voiding trial and starting him most likely on Flomax and finasteride. There is a very good chance, though, that he will fail a voiding trial and may need chronic indwelling catheterization.
[2019-05-18] MEDS: cefTRIAXone SOD 1 GM in D5W MINI-BAG PLUS 50 ML IV SCH (17:42)
--- NOTE | 2019-05-18 17:43 | IPNPDOC ---
Text Note Date of Service The patient was seen on 05/18/19. NOTE SUBJECTIVE: Mr. Jeter is seen before and after his procedure today. He remains pleasantly oriented to himself, as he has significant underlying dementia. The patient is status post cystoscopy with attempted ureteroscopy. Patient has left ureterolithiasis. OBJECTIVE: Please see vital signs below Physical exam: HENT: Neck is supple with no adenopathy or thyromegaly. He does not have scleral icterus. Oral mucosa is moist, poor dentition Cardiovascular: Regular rate and rhythm. No appreciable murmur Respiratory: Clear to auscultation, no cough. Abdomen: Soft, nondistended, nontender, Felton catheter in place. Extremities: IV line sites are wrapped. Neuro: Patient does not exhibit focal neuromotor deficit, but has cognition deficits ASSESSMENT/PLAN: 1. Urinary retention. Patient has had re-placement of Felton catheter by urology services. Patient has significant prostate enlargement with a false passage. Felton catheter is to remain in place for at least 2 weeks while patient is on Flomax and finasteride. He will then be reevaluated by urology services; it may be that the Felton catheter will be a chronic indwelling Felton. 2. Urinary tract infection. The patient did have a positive UA, but a negative culture. Patient is on ceftriaxone. This can likely be stopped. 3. Renal stones. The patient underwent evaluation by cystoscopy and attempted ureteroscopy. S tones were removed from the bladder. There is residual stone to the left ureter but bladder trabeculations made the ureteral orifice difficult to see and access. This may be reattempted by urology services at a latter time and date. The patient could otherwise be discharged to home tomorrow. VS,Fishbone, I+O VS, Fishbone, I+O Laboratory Tests 05/18/19 05:55 Vital Signs Date Time Temp Pulse Resp B/P (MAP) Pulse Ox O2 Delivery O2 Flow Rate FiO2 05/18/19 16:20 95 16 125/69 (87) 97 Room Air 05/18/19 16:15 97.4 I&O- Last 24 Hours up to 6 AM 05/18/19 05:59 Intake Total 970 ml Output Total 1950 ml Balance -980 ml JAQUI SMYTH MD May 18, 2019 17:43
[2019-05-18] MEDS: ACETAMINOPHEN TAB 650MG DOSE (2X325MG) PO PRN (20:14)
[2019-05-18] MEDS: DOCUSATE SOD LIQ 100MG/10ML UDC PO SCH (20:14)
[2019-05-18] MEDS: risperiDONE 0.5 MG TAB PO SCH (20:14)
[2019-05-19 02:00] VITALS: BP 115/67
[2019-05-19 06:00] VITALS: BP 119/63
[2019-05-19 06:11] LABS: HEMATOCRIT 35.1 % (42.0-52.0); HEMOGLOBIN 11.4 g/dl (13.5-17.5); MEAN CORPUSCULAR HEMOGLOBIN 30.6 pg (27.0-33.0); MEAN CORPUSCULAR HGB CONC 32.5 g/dl (32.0-36.5); MEAN CORPUSCULAR VOLUME 94.1 fl (80.0-96.0); PLATELET COUNT, AUTOMATED 301 10^3/uL (150-450); RED BLOOD COUNT 3.73 10^6/uL (4.30-6.10); WHITE BLOOD COUNT 7.7 10^3/uL (4.0-10.0)
[2019-05-19 06:33] LABS: ALBUMIN 2.8 GM/DL (3.2-5.2); ALT/SGPT 25 U/L (12-78); BILIRUBIN,TOTAL 0.3 MG/DL (0.2-1.0); BLOOD UREA NITROGEN 24 MG/DL (7-18); CALCIUM LEVEL 8.9 MG/DL (8.8-10.2); CARBON DIOXIDE LEVEL 28 MEQ/L (21-32); CHLORIDE LEVEL 105 MEQ/L (98-107); CREATININE FOR GFR 0.95 MG/DL (0.70-1.30); GLOMERULAR FILTRATION RATE > 60.0 (>35); GLUCOSE, FASTING 106 MG/DL (70-100); POTASSIUM SERUM 4.4 MEQ/L (3.5-5.1); SODIUM LEVEL 138 MEQ/L (136-145); TOTAL PROTEIN 7.1 GM/DL (6.4-8.2)
[2019-05-19 10:00] VITALS: BP 109/65
[2019-05-19 14:00] VITALS: BP 131/87
[2019-05-19] MEDS: cefTRIAXone SOD 1 GM in D5W MINI-BAG PLUS 50 ML IV SCH (14:00)
[2019-05-19 18:00] VITALS: BP 134/74
[2019-05-19] MEDS: risperiDONE 0.5 MG TAB PO SCH (20:02)
[2019-05-19] MEDS: ACETAMINOPHEN TAB 650MG DOSE (2X325MG) PO PRN (20:02)
[2019-05-19] MEDS: DOCUSATE SOD LIQ 100MG/10ML UDC PO SCH (20:02)
[2019-05-19 22:00] VITALS: BP 132/78
[2019-05-20] MEDS: ACETAMINOPHEN TAB 650MG DOSE (2X325MG) PO PRN (01:37)
[2019-05-20 02:00] VITALS: BP 124/69
[2019-05-20 06:00] VITALS: BP 128/85
[2019-05-20 10:00] VITALS: BP 120/80
== END 2019-05-20 11:53 | disposition home health service (06) | DRG 690 ==
LOC: M ED 03:54 → M ED INP 09:10 → M MSPAV 11:32
PROVIDERS: ADMIT Internal Medicine; ATTEND Internal Medicine
PROC: 0T9B80Z Drainage of Bladder with Drainage Device, Via Natural or Artificial Opening Endoscopic (ICD-10-PCS; 2019-05-12)
PROC: 0TCB8ZZ Extirpation of Matter from Bladder, Via Natural or Artificial Opening Endoscopic (ICD-10-PCS; principal; 2019-05-18 13:00)
DX: N13.6 Pyonephrosis (principal); N39.0 Urinary tract infection, site not specified; N40.1 Benign prostatic hyperplasia with lower urinary tract symptoms; G30.9 Alzheimer's disease, unspecified; N36.5 Urethral false passage; N28.1 Cyst of kidney, acquired; F02.80 Dementia in other diseases classified elsewhere, unspecified severity, without behavioral disturbance, psychotic disturbance, mood disturbance, and anxiety; K59.00 Constipation, unspecified; R33.9 Retention of urine, unspecified; Z79.899 Other long term (current) drug therapy

== ENCOUNTER 2019-05-22 18:06 | Inpatient (IN) | payer MEDICARE ==
[~2019-05-22] VITALS: Ht 182.9 cm; Wt 61.1 kg
[~2019-05-22 18:06] MED LIST changes: +COLA100C5 PO; +MELA10CA2 PO
[2019-05-22 19:31] LABS: BASO % 0.2 % (0.0-1.0); EOS # 0.1 10^3/uL (0.0-0.5); EOS % 0.4 % (0.0-3.0); HEMOGLOBIN 12.6 g/dl (13.5-17.5); LYMPH # 0.6 10^3/uL (1.5-5.0); LYMPH % 4.5 % (24.0-44.0); MEAN CORPUSCULAR HEMOGLOBIN 30.7 pg (27.0-33.0); MEAN CORPUSCULAR HGB CONC 31.5 g/dl (32.0-36.5); MEAN CORPUSCULAR VOLUME 97.3 fl (80.0-96.0); MONO # 1.3 10^3/uL (0.0-0.8); MONO % 10.4 % (0.0-5.0); NEUTROPHILS # 10.6 10^3/uL (1.5-8.5); NEUTROPHILS % 83.9 % (36.0-66.0); PLATELET COUNT, AUTOMATED 310 10^3/uL (150-450); RED BLOOD COUNT 4.11 10^6/uL (4.30-6.10); WHITE BLOOD COUNT 12.6 10^3/uL (4.0-10.0)
--- NOTE | 2019-05-22 19:44 | REP ---
Clinical: Altered mental status . Comparison: 11/23/2018 . Findings: The mediastinum and cardiac silhouette are stable and within normal limits for portable technique. Stable calcified granuloma at the right lung base. Evaluation is limited by poor inspiratory effort and portable technique which accentuate the pulmonary vasculature. Chronic changes are appreciated and subtle superimposed atelectasis or mild interstitial edema cannot be excluded. No focal consolidation or effusion. Impression: Limited examination. Chronic changes. Cannot exclude subtle superimposed interstitial edema or trace atelectasis. Electronically Signed by Usman Cherry MD 05/22/2019 07:36 P
[2019-05-22] MEDS ORDERED: ACETAMINOPHEN 650 MG SUPP PR ONE (20:00)
[2019-05-22 20:06] LABS: ALBUMIN 3.2 GM/DL (3.2-5.2); ALT/SGPT 26 U/L (12-78); BILIRUBIN,DIRECT < 0.1 MG/DL (0.0-0.2); BILIRUBIN,TOTAL 0.4 MG/DL (0.2-1.0); BLOOD UREA NITROGEN 49 MG/DL (7-18); CALCIUM LEVEL 9.4 MG/DL (8.8-10.2); CARBON DIOXIDE LEVEL 27 MEQ/L (21-32); CHLORIDE LEVEL 103 MEQ/L (98-107); CK-MB VALUE MASS < 1.0 NG/ML (<3.6); CPK CREATINE PHOSPHOKINASE 70 U/L (39-308); CREATININE FOR GFR 2.52 MG/DL (0.70-1.30); GLOMERULAR FILTRATION RATE 25.8 (>35); GLUCOSE, FASTING 123 MG/DL (70-100); MB/CK RELATIVE INDEX 1.43 (< OR =4); POTASSIUM SERUM 5.3 MEQ/L (3.5-5.1); SODIUM LEVEL 136 MEQ/L (136-145); TOTAL PROTEIN 7.9 GM/DL (6.4-8.2); TROPONIN I < 0.02 NG/ML (< 0.10)
[2019-05-22] MEDS ORDERED: NS 500 ML IV ONE (20:15)
[2019-05-22] MEDS ORDERED: cefTRIAXone SOD 1 GM in D5W MINI-BAG PLUS 50 ML IV ONE (20:15)
[2019-05-22] MEDS ORDERED: SOD POLYSTYRENE SULFONATE SUSP 15 GM/60 ML UD PO ONE (20:30)
[2019-05-22] MEDS ORDERED: NS 1,000 ML IV ONE (20:30)
[2019-05-22] MEDS ORDERED: CALCIUM GLUCONATE 1,000 MG in D5W MINI-BAG PLUS 100 ML IV ONE (20:30)
[2019-05-22] MEDS ORDERED: BISACODYL 10 MG SUPP PR PRN (21:00)
[2019-05-22] MEDS ORDERED: NON-FORMULARY 1 EA EA PO SCH (21:00)
[2019-05-22 21:59] VITALS: BP 132/92
--- NOTE | 2019-05-22 22:03 | HPE ---
DATE OF ADMISSION: 05/22/2019 CHIEF COMPLAINT: Confusion. HISTORY OF PRESENTING ILLNESS: This is an 88-year-old DO NOT RESUSCITATE, DO NOT INTUBATE male who lives at home with his demented , with a history of advanced Alzheimer's dementia, with 24/7 care at home, presents to the emergency room with worsening confusion since hospital admission. Patient was discharged 05/19/2019 for bilateral hydronephrosis due to kidney stones, urine retention, and acute kidney injury. The patient underwent a stent placement bilaterally by urology and was sent home with a Felton catheter. Since then, he has not been eating well according to the family. He also has not been drinking, even though he has been prompted by his caregiver to drink from a straw, he just bites the straw and has not had any significant intake. According to the family, he denies any fevers, was complaining of the Felton catheter. In the emergency room (ER), he was found to have a temperature of 101.1 with abnormal urinalysis, white count of 12,000. Hospitalist was asked to admit. At this time, he denies any bilateral back pain. He denies any chills. Urine through the Felton appears concentrated and cloudy, foul-smelling according to the caregiver. He has been increasingly lethargic at home, sleeping most of the day and has not been himself. 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 He also thinks that his brother is still alive. He tends to become agitated and does well when his granddaughter tells him to fold napkins over and over and when they give him activity sets on his lap to keep him occupied. Patient has made prior wishes known that he would not want a feeding tube placed. This has been discussed in the emergency room as he has not been eating and drinking, which can be treated in the hospital with IV fluids, but at home may eventually continue on with further dehydration as he does not reorient well. Hospitalist was called to admit for acute encephalopathy secondary to urinary tract infection (UTI), dehydration with acute kidney injury and hyperkalemia, and evaluation of recent stents placed for hydronephrosis and kidney stones to rule out obstruction and migration of stents. PAST MEDICAL HISTORY: Bilateral hydronephrosis secondary to bilateral renal stones with urine retention and acute kidney injury. Advanced Alzheimer's dementia. Bilateral cataracts. Legally blind, usually walks with assistance at all times, does not walk alone with a walker as he is a fall risk. Benign prostatic hypertrophy. Asthma. Grade 1 diastolic dysfunction, ejection fraction (EF) of 75%. PAST SURGICAL HISTORY: Cystoscopy. Bilateral ureteroscopy. Bilateral laser lithotripsy. Bilateral stent placement 05/19/[address] Ziegler, the urologist. ALLERGIES: Patient has no known drug allergies. SOCIAL HISTORY: He lives at home with his who is also advanced in age with dementia. They both have 24/7 care in the home. He lives in a two-story home, mostly he lives on one level but has a chair lift upstairs. He has a wheelchair usually that he uses. Assisted ambulation at all times with one person assistance 11/02. There is one step into the home and usually requires one person assistance to get in. 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 He has very occasional wine, only during the holidays. He did use cigars frequently when he was younger, but has quit for decades. He is currently DO NOT RESUSCITATE, DO NOT INTUBATE. The family has confirmed that he would not want a feeding tube. The patient's healthcare proxy is Ernesto Khan, phone number is [phone]. REVIEW OF SYSTEMS: This was obtained from the patient's daughter, could not be obtained from the patient as he is lethargic and confused. FAMILY HISTORY: Mother age 82, had a kidney resection for unknown reason. Father age 80, of asthma. He had one brother and three sisters with mitral valve prolapse. PHYSICAL EXAMINATION: Temperature is 101, pulse 86, respiratory rate 20, blood pressure 124/72, 97% on room air. Generally, patient is currently sleeping at the bedside but arousable and answers to his name only. He is disoriented to place and unable to state the date. He is cooperative, answers yes or no questions. He is legally blind, able to speak with his children at the bedside. Dry mucous membranes, edentulous. No jugular venous distention. Bilateral cataract are noted. Unable to assess for extraocular muscles as the patient is lethargic and went back to sleep quickly. Lungs are diminished but clear to auscultation. No wheezing, rales or rhonchi. Heart: S1, S2, sinus rhythm. No murmurs, rubs, or gallops. Abdomen is soft, nontender, nondistended. Positive bowel sounds times four quadrants. No hepatosplenomegaly with Felton catheter placement. Extremities: No cyanosis, clubbing or pitting edema. LABORATORY DATA: White count 12.6, hemoglobin 12.6, hematocrit 40, platelet count 310, 83% neutrophils. Sodium 136, potassium 5.3, chloride 103, bicarbonate 27, BUN 49, creatinine 2.52, glucose 123, lactic acid of 1.2, calcium of 9.4, total bilirubin 0.4, direct bilirubin less than 0.1, AST 18, ALT 26, alkaline phosphatase 80, total CK 70, MB fraction less than 1, relative index 1.43, troponin less than 0.02, total protein 7.9, albumin 3.2, TSH 0.81. Urine culture is pending. Urinalysis: Turbid appearance, 2+ protein, 3+ blood, 2+ leukocyte esterase, too numerous to count WBCs, too numerous to count RBCs, urine WBC 183, 1+ bacteria. IMAGING STUDIES: Chest x-ray: Chronic changes, trace atelectasis, cannot exclude superimposed interstitial edema. ASSESSMENT AND PLAN: An 88-year-old DO NOT RESUSCITATE, DO NOT INTUBATE with Alzheimer's dementia, BPH, bilateral kidney stones, with hydronephrosis, status post stent placement, urinary retention, presents with decreased oral intake, fever, and acute encephalopathy. Patient is admitted as an inpatient for the following issues: 1. Acute encephalopathy secondary to urinary tract infection and renal failure and hyperkalemia in the setting of advanced Alzheimer's dementia. Patient has 24/7 care at home, lives with his demented , and requires assisted ambulation at all times. The patient is legally blind bilaterally, unable to take steps without assistance. He is currently being treated for a urinary tract infection with renally dosed IV ceftriaxone, as well as IV fluids for acute renal failure, treatment for hyperkalemia with calcium gluconate and Kayexalate. 2. Urinary tract infection. Previous urine culture was negative. He will be given IV ceftriaxone and await urine culture and sensitivity results. He is currently febrile. Tylenol if needed for comfort. 3. Acute kidney injury. Patient does have a history of bilateral kidney stones, status post lithotripsy and stent placement. Will obtain a renal ultrasound to check for obstruction and migration of stents. However, family stated that he has not been eating or drinking at home, most likely secondary to dehydration. We will attempt IV fluids hydration. The patient has mentioned that he would not want any artificial nutrition in the future should that be the case. Therefore, no feeding tube will be placed during this admission. 4. Hyperkalemia. Most likely secondary to renal failure due to decreased oral intake. Patient does not take any medications that would cause elevated potassium levels. He was given Kayexalate as well as calcium gluconate to stabilize the cardiac membrane with potassium at midnight. 5. BPH with chronic urine retention. Patient has a Felton catheter in place. Urologist will be consulted if there is migration of stents and if adjustment is required. At this time, Felton appears to be flowing freely. Will obtain a kidney ultrasound. 6. Advanced Alzheimer's dementia. Patient has 11/02 care at home. Per the family request, a sitter has been placed. They had also requested that since the patient tends to hallucinate and becomes extremely agitated. When he is oriented that he is in the hospital, they have requested that the patient's hallucinations be ignored. In the past, the patient has asked for his brother, who has been for over 5 years. Family usually responds to him by saying that he will be coming later, and the patient settles down. 7. History of kidney stones. At this time, there is some hematuria found on the urinalysis (UA). Will recheck with a renal ultrasound and consult urology if further intervention is required. 8. History of grade 1 diastolic dysfunction. Ejection fraction of 75%. Due to urinary tract infection and renal failure, the patient is currently on IV fluids. The patient will need monitoring of respiratory status throughout the night. He is currently on room air saturation. 9. Code status is DO NOT RESUSCITATE, DO NOT INTUBATE. Medical Orders for Life-Sustaining Treatment (MOLST) form has been signed by ER physician. He currently has two daughters and one son at the bedside. At this time, the patient will be kept with his current wishes of DO NOT RESUSCITATE, DO NOT INTUBATE. 10. Deep vein thrombosis (DVT) prophylaxis with compression stockings. MTDD
[2019-05-22] MEDS: DOCUSATE SODIUM 100 MG CAP PO SCH (23:14)
[2019-05-23 00:03] LABS: IONIZED CALCIUM 4.8 MG/DL (4.5-5.3)
[2019-05-23 00:28] LABS: CALCIUM LEVEL 8.9 MG/DL (8.8-10.2); CREATININE FOR GFR 3.28 MG/DL (0.70-1.30); GLOMERULAR FILTRATION RATE 19.1 (>35); POTASSIUM SERUM 5.1 MEQ/L (3.5-5.1)
[2019-05-23] MEDS ORDERED: NS 1,000 ML IV ONE (04:15)
[2019-05-23 06:00] VITALS: BP 134/65
[2019-05-23 06:00] LABS: HEMATOCRIT 35.5 % (42.0-52.0); HEMOGLOBIN 11.2 g/dl (13.5-17.5); MEAN CORPUSCULAR HEMOGLOBIN 30.5 pg (27.0-33.0); MEAN CORPUSCULAR HGB CONC 31.5 g/dl (32.0-36.5); MEAN CORPUSCULAR VOLUME 96.7 fl (80.0-96.0); PLATELET COUNT, AUTOMATED 279 10^3/uL (150-450); RED BLOOD COUNT 3.67 10^6/uL (4.30-6.10); WHITE BLOOD COUNT 11.6 10^3/uL (4.0-10.0)
[2019-05-23 06:22] LABS: CALCIUM LEVEL 8.9 MG/DL (8.8-10.2); CREATININE FOR GFR 3.78 MG/DL (0.70-1.30); GLOMERULAR FILTRATION RATE 16.2 (>35); POTASSIUM SERUM 4.4 MEQ/L (3.5-5.1)
--- NOTE | 2019-05-23 07:19 | REPVR ---
PROCEDURE INFORMATION: Exam: US Retroperitoneal Limited, Kidneys Exam date and time: 05/23/2019 6:32 AM Clinical history: 88 years old, male; Condition or disease; Kidney or ureter condition; Acute renal insufficiency; Additional info: Stents tahira TECHNIQUE: Imaging protocol: Real-time ultrasound of the retroperitoneum with image documentation. Examination was focused on the kidneys. COMPARISON: CT ABD PELVIS W/O CONTRAST 05/12/2019 5:13 AM FINDINGS: Right kidney: Right renal cyst measuring 5.7 x 5.8 x 6.3 cm. The right kidney measures 12.3 cm in its cephalocaudad dimension and 5.5 x 5.8 cm in diameter. No mass or hydronephrosis. There is increased echogenicity of the right kidney. Left kidney: The left kidney measures 12.1 cm in its cephalocaudad dimension and 6.4 x 5.7 cm in diameter. There is lower pole pelvocaliectasis and mild proximal left hydroureter. No mass or cyst. There is increased echogenicity of the left renal parenchyma. Bladder: Distended urinary bladder with some internal debris. No Felton is identified within the bladder which measures 11.3 x 15.4 x 10.7 cm with volume of 973 mL. The Felton may be inflated within the urethra or prostate. IMPRESSION: 1. Increased renal echogenicity consistent with medical renal disease. 2. Right renal cyst measuring 5.7 x 5.8 x 6.3 cm. 3. Distended bladder with a volume of 973 mL with some internal debris. No Felton catheter is evident within the bladder and may be within the prostate or urethra. 4. Left proximal hydroureter and lower pole pelvocaliectasis which may be related to bladder distention. Electronically signed by: Siddhartha Hou On 05/23/2019 07:19:14 AM
[2019-05-23] MEDS ORDERED: PREVNAR 13 VACCINE SYRINGE (CPT CODE:90670) IM ONE (09:00)
[2019-05-23] MEDS ORDERED: cefTRIAXone SOD 2 GM in D5W MINI-BAG PLUS 50 ML IV SCH (09:00)
[2019-05-23] MEDS: DOCUSATE SODIUM 100 MG CAP PO SCH ×2 (09:44→20:10)
[2019-05-23] MEDS ORDERED: LIDOCAINE 1% MDV 20ML VIAL As Ordered ONE (11:30)
--- NOTE | 2019-05-23 13:16 | SMCUROLCON ---
Urology Consultation General Date of Consultation 05/23/19 Reason For Consultation This patient is seen for inability to place a Felton catheter with a known bladder neck disruption from previous catheter trauma History of Present Illness The patient is a 88-year-old demented gentleman who was hospitalized recently after coming in for urinary retention with an inability to place Felton catheter in the ER and a false passage. The patient required a Felton to be placed at the bedside with the cystoscopy. A CT scan then had shown questionable bilateral stones but the stones on the left had actually passed. 10 mm distal right ureteral stone and I brought him to the operating room but was unable to retrieve it secondary to the bladder neck disruption from a false passage. He was brought back to the hospital for worsening confusion at home although when he was in the hospital he was quite confused. Upon his hospitalization somehow his Felton catheter was removed and he was unable to urinate. He is to place a Coude catheter at the bedside but was unable to so we decided that the best thing was to place a suprapubic catheter and this will be dictated separately. He has not seem to complain of any flank pain. He is in acute renal failure now with a creatinine of 3.78 and he is afebrile with a slightly elevated white blood count. Past Medical History Medical History Advanced Alzheimer's dementia Bilateral cataracts and legally blind Asthma Grade 1 diastolic dysfunction with a ejection fracture of 75 Acute renal failure Surgical Hstory Cystoscopy and attempted ureteroscopy 05/19/19 and no stents were placed at this time left stones had passed and I was unable to access the left side Family History Significant Family History: No pertinent family hx Social History Social History Lives at home with a 24/7 caregiver and his also has dementia and lives with him. He has a wheelchair that he usually uses. 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 * Smoker: former Smoker Medications Current Medications Current Medications Medications (Trade) Dose Ordered Sig/Shira Route PRN Reason Start Time Stop Time Status Last Admin Dose Admin Bisacodyl (Dulcolax Suppository) 10 mg Q6HP PRN NE CONSTIPATION 05/22/19 21:00 Ceftriaxone Sodium 2 gm/ Dextrose 50 ml @ 50 mls/hr DAILY IV 05/23/19 09:00 05/28/19 09:59 05/23/19 09:44 Docusate Sodium (Colace) 100 mg BID PO 05/22/19 21:00 05/23/19 09:44 Home Med (Med Rec Complete!) ASDIRECTED XX 05/22/19 21:30 05/22/19 21:30 DC Miscellaneous (Unresolved Patient Own Med Order) SEE LABEL COMMENTS DAILY XX 05/22/19 09:00 Non-Formulary Medication PT MAY TAKE HOME ... QHS PO 05/22/19 21:00 UNV Allergies Allergies: Coded Allergies: No Known Allergies (Unverified , 11/16/18) Review of Systems General: Reports: ROS Unobtainable (Patient has advanced dementia please see the HPI) Physical Examination General Exam: Alert; No: Other EYE EXAM: PERRLA, Conjunctiva & lids normal, Other Eye Symptoms (Bilateral Cataract) ENT EXAM: Atraumatic Neck Exam: Supple Chest Exam: Clear to auscultation, Normal air movement Heart Exam: Rate Normal Abdomen Exam: Other (Distended Bladder) Male Exam: Normal Genital Exam Extremity Exam: No: Clubbing, Cyanosis, Edema Skin Exam: Nl turgor and temperature Neuro Exam: Other (Uses wheelchair with advanced dementia) Psych Exam: Other (Not oriented to person place or time) Vital Signs/I&O Vital Signs Date Time Temp Pulse Resp B/P (MAP) Pulse Ox O2 Delivery O2 Flow Rate FiO2 05/23/19 06:00 98.7 87 20 134/65 (88) 94 Room Air I&O- Last 24 Hours up to 6 AM 05/23/19 05:59 Intake Total 2160 ml Output Total 50 ml Balance 2110 ml Laboratory Data 24H Labs Laboratory Tests 2 05/22/19 19:19: Immature Granulocyte % (Auto) 0.6, Neutrophils (%) (Auto) 83.9H, Lymphocytes (%) (Auto) 4.5L, Monocytes (%) (Auto) 10.4H, Eosinophils (%) (Auto) 0.4, Basophils (%) (Auto) 0.2, Neutrophils # (Auto) 10.6H, Lymphocytes # (Auto) 0.6L, Monocytes # (Auto) 1.3H, Eosinophils # (Auto) 0.1, Basophils # (Auto) 0.0, Nucleated Red Blood Cells % (auto) 0.0, Urine Color MIMA, Urine Appearance TURBIDH, Urine pH 5.0, Urine Specific [place] 1.016, Urine Protein 2+H, Urine Glucose (UA) NEGATIVE, Urine Ketones NEGATIVE, Urine Blood 3+H, Urine Nitrite NEGATIVE, Urine Bilirubin NEGATIVE, Urine Urobilinogen 0.2, Urine Leukocyte Esterase 2+H, Urine WBC (Auto) 183, Urine RBC (Auto) TNTCH, Urine Hyaline Casts (Auto) 0, Urine Bacteria (Auto) 1+H, Urine Squamous Epithelial Cells 0, Urine Mucus (Auto) LARGE, Urine Sperm (Auto) , Anion Gap 6L, Glomerular Filtration Rate 25.8L, Lactic Acid Level 1.2, Calcium Level 9.4, Total Bilirubin 0.4, Direct Bilirubin < 0.1, Aspartate Amino Transf (AST/SGOT) 18, Alanine Aminotransferase (ALT/SGPT) 26, Alkaline Phosphatase 80, Total Creatine Kinase 70, Creatine Kinase MB < 1.0, Creatine Kinase MB Relative Index 1.43, Troponin I < 0.02, Total Protein 7.9, Albumin 3.2, Albumin/Globulin Ratio 0.68L, Thyroid Stimulating Hormone (TSH) 0.810 05/22/19 23:56: Anion Gap 8, Glomerular Filtration Rate 19.1L, Calcium Level 8.9, Whole Blood Ionized Calcium 4.8 05/23/19 05:03: Nucleated Red Blood Cells % (auto) 0.0, Anion Gap 8, Glomerular Filtration Rate 16.2L, Calcium Level 8.9 CBC/BMP Laboratory Tests 05/22/19 19:19 05/22/19 23:56 05/23/19 05:03 Microbiology Microbiology 05/22/19 Urine Culture, Received Pending Assessment -Inability to place Felton catheter in a gentleman who was in urinary retention and they were unable to place a catheter and there was year urethral false passage and bladder neck options -Acute renal failure with an ultrasound 05/23/19 showed increased renal ec hogenicity consistent with medical renal disease and a right renal cysts with a distended bladder. There is left mild pelvocaliectasis and mild proximal left hydroureter slightly to the 10 mm stone but his creatinine was normal before so most likely this is not the reason for the acute renal failure -Late onset dementia requiring 24 7 care and wheelchair bound Plan -Suprapubic catheter placed and they should stay indwelling -Medical treatment for now and once the bladder neck is healed which will usually take several weeks consideration can be done again for ureteroscopy on the left side and stone manipulation but if his creatinine comes down to normal. He is not afebrile. He complains of no pain by recommendation is continued watchful waiting since I think the stone has been there for quite some time. Time Spent on Consult: Time Spent / Consult (Minutes): 100 SANDRA SLAUGHTER MD May 23, 2019 13:16
--- NOTE | 2019-05-23 13:57 | IPNPDOC ---
Text Note Date of Service The patient was seen on 05/23/19. NOTE SUBJECTIVE: Mr. 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 He has difficulty with urinary retention; unfortunately, his Felton catheter is out. It had been somehow dislodged and then was removed because there was no urine flow. He continued this morning with remarkable discomfort and urinary retention. OBJECTIVE: Please see vital signs below Physical exam: HENT: Neck is supple with no adenopathy or thyromegaly, oral mucosa is somewhat tachycardia, patient has poor dentition. Cardiovascular: Regular rate and rhythm with a normal S1 and S2. Respiratory: Clear to auscultation. Abdomen: Patient has remarkable firm distention to the suprapubic area; approxim ately 1 L of retained urine via scan is measured. Extremities: No peripheral edema, pedal pulses are palpable, serial compression devices are in place. Neuro: No focal neuromotor or sensory deficit. Psych: Patient has dementia, he is principally oriented to self but is remarkably conversant at the moment ASSESSMENT/PLAN: 1. Ureterolithiasis. Patient has known ureterolithiasis. Patient had had attempt at ureteral stents placed. Patient has residual stone to the left ureter with mild hydroureter. There will be attempt at removal at a latter date. 2. Urinary retention. Patient had had urinary retention; Felton catheter had been placed with significant difficulty due to false passage at bladder neck. Felton catheter was to remain in place but somehow has become dislodged in the interim and nonfunctioning. Bladder catheter was then removed. There was difficulty with replacing the Felton catheter. Urology services was consulted. Patient ultimately has now undergone placement of a suprapubic catheter. This will likely be permanent. 3. Concern for UTI. In discussion with urology services unless this patient has significant leukocytosis and/or fever patient is unlikely to have a UTI; positive urinalysis, likely reflects chronic Felton and cultures will reflect colonization. Antibiotics are not initially recommended. VS,Fishbone, I+O VS, Fishbone, I+O Laboratory Tests 05/22/19 19:19 05/22/19 23:56 05/23/19 05:03 Vital Signs Date Time Temp Pulse Resp B/P (MAP) Pulse Ox O2 Delivery O2 Flow Rate FiO2 05/23/19 06:00 98.7 87 20 134/65 (88) 94 Room Air I&O- Last 24 Hours up to 6 AM 05/23/19 06:00 Intake Total 3035 ml Output Total 75 ml Balance 2960 ml JAQUI SMYTH MD May 23, 2019 13:57
[2019-05-23 14:00] VITALS: BP 123/54
[2019-05-23] MEDS: NS 1,000 ML IV SCH (14:17)
[2019-05-23 22:00] VITALS: BP 119/69
[2019-05-24] MEDS: NS 1,000 ML IV SCH ×3 (03:19→20:37)
[2019-05-24 05:51] LABS: HEMATOCRIT 33.1 % (42.0-52.0); HEMOGLOBIN 10.3 g/dl (13.5-17.5); MEAN CORPUSCULAR HEMOGLOBIN 30.5 pg (27.0-33.0); MEAN CORPUSCULAR HGB CONC 31.1 g/dl (32.0-36.5); MEAN CORPUSCULAR VOLUME 97.9 fl (80.0-96.0); PLATELET COUNT, AUTOMATED 248 10^3/uL (150-450); RED BLOOD COUNT 3.38 10^6/uL (4.30-6.10); WHITE BLOOD COUNT 9.2 10^3/uL (4.0-10.0)
[2019-05-24 06:00] VITALS: BP 134/68
[2019-05-24 06:10] LABS: BLOOD UREA NITROGEN 34 MG/DL (7-18); CALCIUM LEVEL 8.3 MG/DL (8.8-10.2); CARBON DIOXIDE LEVEL 28 MEQ/L (21-32); CHLORIDE LEVEL 112 MEQ/L (98-107); CREATININE FOR GFR 1.01 MG/DL (0.70-1.30); GLOMERULAR FILTRATION RATE > 60.0 (>35); GLUCOSE, FASTING 97 MG/DL (70-100); POTASSIUM SERUM 3.5 MEQ/L (3.5-5.1); SODIUM LEVEL 145 MEQ/L (136-145)
[2019-05-24] MEDS: DOCUSATE SODIUM 100 MG CAP PO SCH ×2 (07:55→20:34)
[2019-05-24] MEDS ORDERED: PREVNAR 13 VACCINE SYRINGE (CPT CODE:90670) IM ONE (09:00)
--- NOTE | 2019-05-24 09:57 | IPNPDOC ---
Text Note Date of Service The patient was seen on 05/24/19. NOTE Mr. Jeter seems back to his baseline although his caregiver say that he still seems more tired than normal. He has a Felton catheter in place and this is draining quite well with light pink urine. His creatinine is back to baseline at 1.01 and his white blood count is normal. A urine culture on 05 22 shows no growth. Physical exam: This is a demented gentleman lying in a hospital bed in no acute distress. He is wearing mittens so not to pull at the suprapubic catheter. His abdomen is soft and nontender. His calves showed no swelling or tenderness. Impression/Plan: -Urinary retention which is caregivers believe he's had difficulty urinating for quite some time and was found to have a very large prostate with a bladder neck rupture from traumatic catheter placement now with the suprapubic tube and doing well. He should be sent home with the suprapubic tube in place and this can be changed the first time in our office -Acute renal insufficiency now with creatinine back to baseline since his bladder has been drained -10 mm distal left ureteral stone but in a patient with a normal white blood count, no problems with recurrent urinary tract infections, no gross hematuria now with a normal creatinine and I would just recommend watchful waiting for this VSChente, I+O VSChente, I+O Laboratory Tests 05/24/19 05:06 Vital Signs Date Time Temp Pulse Resp B/P (MAP) Pulse Ox O2 Delivery O2 Flow Rate FiO2 05/24/19 06:00 98.0 83 17 134/68 (90) 97 Room Air I&O- Last 24 Hours up to 6 AM 05/24/19 06:00 Intake Total 1490 ml Output Total 2500 ml Balance -1010 ml SANDRA SLAUGHTER MD May 24, 2019 09:57
--- NOTE | 2019-05-24 12:36 | IPNPDOC ---
Text Note Date of Service The patient was seen on 05/24/19. NOTE SUBJECTIVE: Mr. Jeter is doing very well this morning. Although he has underlying dementia and is principally oriented to self he initiates and maintains social contact. The patient is status post intervention for urinary retention; he underwent placement of a suprapubic catheter yesterday. OBJECTIVE: Please see vital signs below Physical exam: HENT: Neck is supple with no adenopathy or thyromegaly, oral mucosa is somewhat tachycardia, patient has poor dentition. Cardiovascular: Regular rate and rhythm with a normal S1 and S2. Respiratory: Clear to auscultation. Abdomen: Patient had remarkable firm distention to the suprapubic area; approximately 1 L of retained urine via scan was measured. The patient now has a suprapubic catheter secured in place with drain and Tegaderm. Extremities: No peripheral edema, pedal pulses are palpable, serial compression devices are in place. Patient is wearing minutes for safety, so that he doesn't pull the catheter out. Neuro: No focal neuromotor or sensory deficit. Psych: Patient has dementia, he is principally oriented to self but is remarkably conversant at the moment ASSESSMENT/PLAN: 1. Urinary retention. The patient had had urinary retention and Felton catheter had been placed with s ignificant difficulty due to false passage at the bladder neck. The patient also has a significantly enlarged prostate. The Felton catheter was to remain in place but somehow became dislodged and nonfunctioning. Patient developed worsening urinary retention with obstructive uropathy. Urology services was consult and suprapubic catheter was placed. Obstruction is resolved; creatinine has come back down to 1.01. Recommendations are that the suprapubic catheter be permanent. 2. Ureterolithiasis. Patient has known ureteral lithiasis with residual stone to the distal left ureter. Patient is not especially symptomatic with this. There had been attempts at ureteral stent placement. Patient will follow-up with the urology service and they will reattempt removal at a later date. Disposition: Patient can likely be discharged home tomorrow; he has been assessed and cleared by physical therapy services. Has adequate care resources at home. VS,Fishbone, I+O VS, Fishbone, I+O Laboratory Tests 05/24/19 05:06 Vital Signs Date Time Temp Pulse Resp B/P (MAP) Pulse Ox O2 Delivery O2 Flow Rate FiO2 05/24/19 06:00 98.0 83 17 134/68 (90) 97 Room Air I&O- Last 24 Hours up to 6 AM 05/24/19 05:59 Intake Total 1915 ml Output Total 2225 ml Balance -310 ml JAQUI SMYTH MD May 24, 2019 12:36
[2019-05-24 14:00] VITALS: BP 119/61
[2019-05-24 19:30] VITALS: BP 130/70
[2019-05-25 03:55] VITALS: BP 126/61
[2019-05-25 05:55] LABS: HEMATOCRIT 30.3 % (42.0-52.0); HEMOGLOBIN 9.7 g/dl (13.5-17.5); MEAN CORPUSCULAR HEMOGLOBIN 30.7 pg (27.0-33.0); MEAN CORPUSCULAR VOLUME 95.9 fl (80.0-96.0); PLATELET COUNT, AUTOMATED 250 10^3/uL (150-450); RED BLOOD COUNT 3.16 10^6/uL (4.30-6.10); WHITE BLOOD COUNT 7.7 10^3/uL (4.0-10.0)
[2019-05-25 06:14] LABS: BLOOD UREA NITROGEN 25 MG/DL (7-18); CARBON DIOXIDE LEVEL 27 MEQ/L (21-32); CHLORIDE LEVEL 115 MEQ/L (98-107); CREATININE FOR GFR 0.75 MG/DL (0.70-1.30); GLOMERULAR FILTRATION RATE > 60.0 (>35); GLUCOSE, FASTING 101 MG/DL (70-100); MAGNESIUM LEVEL 1.8 MG/DL (1.8-2.4); POTASSIUM SERUM 3.8 MEQ/L (3.5-5.1); SODIUM LEVEL 148 MEQ/L (136-145)
[2019-05-25 06:30] VITALS: BP 117/70
[2019-05-25] MEDS: DOCUSATE SODIUM 100 MG CAP PO SCH (08:49)
--- NOTE | 2019-05-25 10:57 | RO ---
DATE OF PROCEDURE: 05/23/2019 PREPROCEDURAL DIAGNOSIS: Inability to place Felton catheter with a known bladder neck disruption secondary to Felton trauma. POST PROCEDURAL DIAGNOSIS: Inability to place Felton catheter with a known bladder neck disruption secondary to Felton trauma. PROCEDURE: Attempted Felton catheter and use of a difficult urology tray but unable to place, so a 14-Norwegian suprapubic catheter was placed. SURGEON: Dr. Eneida Ziegler SPA COORDINATOR: ANESTHESIA: Local with lidocaine. INDICATIONS FOR PROCEDURE: The patient is an 88-year-old demented gentleman who originally came to the hospital with urinary retention and was also found to have a distal left 10 mm ureteral stone. They were unable to place a Felton catheter in the emergency room and had a false passage. The [facility] urologist needed to come in and do a cystoscopy at the bedside and was able to place a Felton catheter. I then attempted to bring the patient to the operating room for left ureteroscopy, but because of the bladder neck disruption was unable to see the left ureteral orifice. The patient was discharged to home with a Felton catheter in place and was going to come back in for followup since he complained of no left flank pain and his creatinine was completely stable at 0.95 and he was afebrile. He came back into the hospital with a change in mental status and somehow his Felton catheter was removed and they were unable to replace it. PROCEDURE: Originally I prepped and draped the patient tried to place a coude catheter and was unable to. I then opened a [employer] urology tray and tried to use this but still was unable to place a catheter. At this point, informed consent was obtained by his healthcare proxy and a suprapubic tube was placed. He was prepped and draped on his lower abdomen and 10 mL of 1% lidocaine was injected. Next, an 18-Norwegian spinal needle was placed in the suprapubic area until urine was seen. An incision was then made over the needle and using the Cook catheter set this was placed into the bladder with excellent return. A 14-Norwegian Felton catheter was then placed through the center of this and the sheath was removed. 10 mL was then placed in the catheter balloon and it continued to drain clear yellow urine. The patient tolerated the procedure well.
[2019-05-25 14:00] VITALS: BP 113/55
--- NOTE | 2019-05-25 14:04 | IPNPDOC ---
Text Note Date of Service The patient was seen on 05/25/19. NOTE Mr. Jeter has a suprapubic catheter in place and it is draining well. Physical exam: This is a demented gentleman lying in a hospital bed in no acute distress. He is wearing mittens so not to pull at the suprapubic catheter. His abdomen is soft and nontender. His calves showed no swelling or tenderness. Impression/Plan: -Urinary retention which is caregivers believe he's had difficulty urinating for quite some time and was found to have a very large prostate with a bladder neck rupture from traumatic catheter placement now with the suprapubic tube and doing well. He should be sent home with the suprapubic tube in place and this can be changed the first time in our office -Acute renal insufficiency now with creatinine back to baseline since his bladder has been drained -10 mm distal left ureteral stone but in a patient with a normal white blood count, no problems with recurrent urinary tract infections, no gross hematuria now with a normal creatinine and I would just recommend watchful waiting for this -Patient most likely to be discharged today VS,Chente, I+O VSChente, I+O Laboratory Tests 05/25/19 05:08 Vital Signs Date Time Temp Pulse Resp B/P (MAP) Pulse Ox O2 Delivery O2 Flow Rate FiO2 05/25/19 06:30 98.9 70 18 117/70 (86) 96 Room Air I&O- Last 24 Hours up to 6 AM 05/25/19 06:00 Intake Total 1755 ml Output Total 1350 ml Balance 405 ml SANDRA SLAUGHTER MD May 25, 2019 14:04
[2019-05-25] MEDS ORDERED: FLUBLOK(EGG FREE)(QUAD)INFLUENZA VACC 0.5ML SYRINGE (90682)18YRS&OLDER IM ONE (15:00)
== END 2019-05-25 15:15 | disposition home health service (06) | DRG 699 ==
LOC: EDBD 18:06 → M ED 18:06 → M ED INP 20:18 → M MSPAV 21:47
PROVIDERS: ADMIT General Practice; ATTEND Internal Medicine
PROC: 0T9B30Z Drainage of Bladder with Drainage Device, Percutaneous Approach (ICD-10-PCS; principal; 2019-05-23)
DX: T83.028A Displacement of other urinary catheter, initial encounter (principal); N39.0 Urinary tract infection, site not specified; N17.9 Acute kidney failure, unspecified; F02.81 Dementia in other diseases classified elsewhere, unspecified severity, with behavioral disturbance; N20.1 Calculus of ureter; G93.40 Encephalopathy, unspecified; J45.909 Unspecified asthma, uncomplicated; H54.8 Legal blindness, as defined in USA; Z66 Do not resuscitate; E87.5 Hyperkalemia; E86.0 Dehydration; N40.1 Benign prostatic hyperplasia with lower urinary tract symptoms; R33.9 Retention of urine, unspecified; G30.9 Alzheimer's disease, unspecified; Y84.6 Urinary catheterization as the cause of abnormal reaction of the patient, or of later complication, without mention of misadventure at the time of the procedure; Z87.442 Personal history of urinary calculi; Z79.899 Other long term (current) drug therapy

== ENCOUNTER → 2019-06-09 | Outpatient (REF) | payer MEDICARE ==
[2019-06-09 20:09] LABS: BASO # 0.1 10^3/uL (0.0-0.2); EOS # 0.4 10^3/uL (0.0-0.5); EOS % 7.2 % (0.0-3.0); HEMATOCRIT 37.8 % (42.0-52.0); HEMOGLOBIN 11.8 g/dl (13.5-17.5); LYMPH # 1.1 10^3/uL (1.5-5.0); LYMPH % 22.2 % (24.0-44.0); MEAN CORPUSCULAR HEMOGLOBIN 30.5 pg (27.0-33.0); MEAN CORPUSCULAR HGB CONC 31.2 g/dl (32.0-36.5); MEAN CORPUSCULAR VOLUME 97.7 fl (80.0-96.0); MONO # 0.4 10^3/uL (0.0-0.8); MONO % 7.5 % (0.0-5.0); NEUTROPHILS % 61.9 % (36.0-66.0); PLATELET COUNT, AUTOMATED 281 10^3/uL (150-450); RED BLOOD COUNT 3.87 10^6/uL (4.30-6.10); WHITE BLOOD COUNT 4.8 10^3/uL (4.0-10.0)
[2019-06-09 20:24] LABS: ALT/SGPT 14 U/L (12-78); BILIRUBIN,TOTAL 0.3 MG/DL (0.2-1.0); BLOOD UREA NITROGEN 12 MG/DL (7-18); CALCIUM LEVEL 8.8 MG/DL (8.8-10.2); CARBON DIOXIDE LEVEL 30 MEQ/L (21-32); CHLORIDE LEVEL 104 MEQ/L (98-107); CREATININE FOR GFR 0.89 MG/DL (0.70-1.30); GLOMERULAR FILTRATION RATE > 60.0 (>35); GLUCOSE, FASTING 128 MG/DL (70-100); SODIUM LEVEL 138 MEQ/L (136-145); TOTAL PROTEIN 6.7 GM/DL (6.4-8.2)
== END ==
LOC: M LAB REF 19:22
PROVIDERS: ATTEND Family Medicine
DX: R33.9 Retention of urine, unspecified (principal)

== ENCOUNTER 2019-09-05 14:10 | Emergency (ER) | payer MEDICARE ==
[~2019-09-05] VITALS: Ht 182.9 cm; Wt 65.5 kg
[2019-09-05] MEDS ORDERED: MIRA1POW3 PO (14:33)
--- NOTE | 2019-09-05 15:16 | REP ---
Clinical: Hematuria. Technique: Axial noncontrast images from the lung bases to the pubic symphysis with coronal and sagittal re-formations. Findings: Moderate bilateral pleural effusions with bibasilar atelectasis noted. The liver, spleen, pancreas, gallbladder, bilateral adrenal glands and left kidney are normal. Right kidney includes 6.7 cm exophytic lower pole cyst. There is no evidence for acute perinephric stranding, hydroureteronephrosis, intrarenal or obstructing ureteral calculi. The enteric system is without obstruction or acute inflammatory process. Normal terminal ileum and appendix are identified in the right lower quadrant. Colonic diverticulosis noted without acute diverticulitis. Suprapubic catheter extends into a collapsed bladder. The prostate gland is enlarged and measures approximately 4.9 cm transverse diameter with mass effect on the base of the bladder noted. No pelvic fluid or ascites. No free air. No obvious adenopathy. Abdominal aorta demonstrates atherosclerotic changes without aneurysm. Skeletal structures demonstrate degenerative changes without acute osseous abnormality. Impression: 1. Moderate bilateral pleural effusions and bibasilar atelectasis. 2. A 6.7 cm simple appearing lower pole right renal cyst. 3. Suprapubic catheter in collapsed bladder. 4. Prostatomegaly. 5. No acute abdominopelvic pathology appreciated. No ascites. No focal inflammatory stranding. No adenopathy. Electronically Signed by Usman Cherry MD 09/05/2019 03:07 P
[2019-09-05 15:33] LABS: BASO % 0.3 % (0.0-1.0); EOS # 0.3 10^3/uL (0.0-0.5); EOS % 3.7 % (0.0-3.0); HEMOGLOBIN 11.8 g/dl (13.5-17.5); LYMPH % 13.4 % (24.0-44.0); MEAN CORPUSCULAR HEMOGLOBIN 30.5 pg (27.0-33.0); MEAN CORPUSCULAR HGB CONC 31.9 g/dl (32.0-36.5); MEAN CORPUSCULAR VOLUME 95.6 fl (80.0-96.0); MONO # 0.8 10^3/uL (0.0-0.8); NEUTROPHILS # 5.1 10^3/uL (1.5-8.5); NEUTROPHILS % 71.2 % (36.0-66.0); PLATELET COUNT, AUTOMATED 243 10^3/uL (150-450); RED BLOOD COUNT 3.87 10^6/uL (4.30-6.10); WHITE BLOOD COUNT 7.1 10^3/uL (4.0-10.0)
[2019-09-05 15:58] LABS: BLOOD UREA NITROGEN 14 MG/DL (7-18); CALCIUM LEVEL 8.5 MG/DL (8.8-10.2); CARBON DIOXIDE LEVEL 32 MEQ/L (21-32); CHLORIDE LEVEL 105 MEQ/L (98-107); CREATININE FOR GFR 0.92 MG/DL (0.70-1.30); GLOMERULAR FILTRATION RATE > 60.0 (>35); GLUCOSE, FASTING 108 MG/DL (70-100); POTASSIUM SERUM 4.1 MEQ/L (3.5-5.1); SODIUM LEVEL 140 MEQ/L (136-145)
--- NOTE | 2019-09-05 16:45 | REP ---
Clinical: Pleural effusion . Comparison: 05/22/2019 . Findings: Mediastinum and cardiac silhouette are within normal limits and stable. Lung mcintosh demonstrate chronic interstitial changes. Left lower lobe/retrocardiac consolidation cannot be excluded along with small pleural effusions. No pneumothorax. Skeletal structures intact. Impression: Left lower lobe/retrocardiac atelectasis and small bilateral pleural effusions. Electronically Signed by Usman Cherry MD 09/05/2019 04:37 P
[2019-09-05 17:39] VITALS: BP 147/90
[2019-09-05] MEDS ORDERED: KEFL500C17 PO (17:39)
--- NOTE | 2019-09-09 10:55 | ED PDOC ---
Post-Departure Follow-Up radiology report faxed to Radha Vallejo MD Sep 09, 2019 10:55
== END 2019-09-05 17:50 | disposition home or self-care (01) ==
LOC: EDBD 14:10 → M ED 14:10
DX: R39.89 Other symptoms and signs involving the genitourinary system (principal); J91.8 Pleural effusion in other conditions classified elsewhere; G30.9 Alzheimer's disease, unspecified; R97.20 Elevated prostate specific antigen [PSA]